=== PATIENT | female | born 1945 | race Caucasian/White ===

== ENCOUNTER 2018-02-01 07:46 | Emergency (ER) | payer MEDICARE, MEDICAID ==
[~2018-02-01] VITALS: Ht 154.9 cm; Wt 61.8 kg
[~2018-02-01 07:46] MED LIST: ACET-812 PO; ASPI81TA30 PO; CHOL10002 PO; FLAX1CAP6 PO; HYDR-3686 PO; LEVO88TA2 PO; LISI-604 PO; MULT-1085 PO; OMEP20CA10 PO; PHEN-786 PO; POLY17PO10 PO; PROC5TAB10 PO
[2018-02-01] MEDS ORDERED: LORazepam 1 MG tablet PO ONE (08:25)
[2018-02-01 08:47] LABS: BASOPHILS % (AUTO) 0.9 % (0-1); EOSINOPHILS # (AUTO) 0.1 X10'3 (0-0.9); EOSINOPHILS % (AUTO) 2.4 % (0-6); LYMPHOCYTES # (AUTO) 1.2 X10'3 (1.1-4.8); LYMPHOCYTES % (AUTO) 24.3 % (21-51); MEAN CORPUSCULAR HEMOGLOBIN 29.7 PG (27.0-31.0); MEAN CORPUSCULAR HGB CONC 33.3 % (33.0-36.5); MEAN CORPUSCULAR VOLUME 89.2 FL (78-98); MEAN PLATELET VOLUME 7.6 FL (7.4-10.4); MONOCYTES # (AUTO) 0.4 X10'3 (0-0.9); MONOCYTES % (AUTO) 7.9 % (2-12); NEUTROPHILS # (AUTO) 3.3 X10'3 (1.8-7.7); NEUTROPHILS % (AUTO) 64.5 % (42-75); PLATELET COUNT 249 X10'3 (140-440); RED BLOOD COUNT 4.37 X10'6 (4.20-5.60); RED CELL DISTRIBUTION WIDTH 13.8 % (11.5-14.5); WHITE BLOOD COUNT 5.1 X10'3 (4.5-11.0)
[2018-02-01 09:00] LABS: ALANINE AMINOTRANSFERASE 19 U/L (12-78); ALBUMIN 3.8 G/DL (3.4-5.0); ALKALINE PHOSPHATASE 73 IU/L (46-116); ANION GAP 7 (8-16); ASPARTATE AMINO TRANSFERASE 18 U/L (10-37); BILIRUBIN,TOTAL 0.4 MG/DL (0.1-1.0); BLOOD UREA NITROGEN 9 MG/DL (7-18); BUN/CREATININE RATIO 10.7 (6.6-38.0); CALCIUM 9.3 MG/DL (8.5-10.1); CHLORIDE 103 MMOL/L (99-107); CREATININE 0.84 MG/DL (0.40-0.90); GLUCOSE 103 MG/DL (70-104); POTASSIUM 4.2 MMOL/L (3.5-5.1); SODIUM 140 MMOL/L (135-145); TOTAL CARBON DIOXIDE 30.1 MMOL/L (24-32); TOTAL PROTEIN 7.7 G/DL (6.4-8.2); eGFR 66 ML/MIN
[2018-02-01 09:06] LABS: MAGNESIUM 1.9 MG/DL (1.5-2.4); TROPONIN I < 0.04 NG/ML (0.0-0.05)
[2018-02-01 10:36] VITALS: BP 134/64
== END 2018-02-01 10:42 | disposition home or self-care (01) ==
LOC: ER 07:47
DX: R20.2 Paresthesia of skin (principal); I10 Essential (primary) hypertension; F41.9 Anxiety disorder, unspecified; E03.9 Hypothyroidism, unspecified; Z90.49 Acquired absence of other specified parts of digestive tract; Z90.710 Acquired absence of both cervix and uterus; Z98.890 Other specified postprocedural states; Z60.2 Problems related to living alone; Z88.5 Allergy status to narcotic agent; Z88.8 Allergy status to other drugs, medicaments and biological substances; Z79.82 Long term (current) use of aspirin; Z79.899 Other long term (current) drug therapy
CPT/HCPCS: 36415; 71045; 80053; 83735; 84484; 85025; 93005; 99284

== ENCOUNTER 2018-03-30 12:20 | Emergency (ER) | payer MEDICARE, MEDICAID ==
[~2018-03-30] VITALS: Ht 157.5 cm; Wt 61.0 kg
[2018-03-30] MEDS ORDERED: LORazepam 1 MG tablet PO ONE (12:50)
[2018-03-30] MEDS ORDERED: LORazepam 0.5 MG tablet PO ONE (12:55)
[2018-03-30 13:02] LABS: BASOPHILS % (AUTO) 0.4 % (0-1); EOSINOPHILS # (AUTO) 0.1 X10'3 (0-0.9); EOSINOPHILS % (AUTO) 1.6 % (0-6); HEMATOCRIT 38.8 % (35.0-45.0); HEMOGLOBIN 13.1 g/dl (12.0-16.0); LYMPHOCYTES # (AUTO) 1.7 X10'3 (1.1-4.8); LYMPHOCYTES % (AUTO) 25.7 % (21-51); MEAN CORPUSCULAR HEMOGLOBIN 30.6 PG (27.0-31.0); MEAN CORPUSCULAR HGB CONC 33.7 % (33.0-36.5); MEAN CORPUSCULAR VOLUME 90.9 FL (78-98); MEAN PLATELET VOLUME 6.9 FL (7.4-10.4); MONOCYTES # (AUTO) 0.5 X10'3 (0-0.9); MONOCYTES % (AUTO) 8.4 % (2-12); NEUTROPHILS # (AUTO) 4.1 X10'3 (1.8-7.7); NEUTROPHILS % (AUTO) 63.9 % (42-75); PLATELET COUNT 274 X10'3 (140-440); RED BLOOD COUNT 4.27 X10'6 (4.20-5.60); RED CELL DISTRIBUTION WIDTH 13.7 % (11.5-14.5); WHITE BLOOD COUNT 6.4 X10'3 (4.5-11.0)
[2018-03-30 13:18] LABS: ALANINE AMINOTRANSFERASE 23 U/L (12-78); ALBUMIN 4.1 G/DL (3.4-5.0); ALKALINE PHOSPHATASE 67 IU/L (46-116); ANION GAP 8 (8-16); ASPARTATE AMINO TRANSFERASE 18 U/L (10-37); BILIRUBIN,TOTAL 0.6 MG/DL (0.1-1.0); BLOOD UREA NITROGEN 10 MG/DL (7-18); BUN/CREATININE RATIO 11.4 (6.6-38.0); CALCIUM 9.5 MG/DL (8.5-10.1); CHLORIDE 100 MMOL/L (99-107); CREATININE 0.88 MG/DL (0.40-0.90); GLUCOSE 102 MG/DL (70-104); POTASSIUM 3.9 MMOL/L (3.5-5.1); SODIUM 138 MMOL/L (135-145); TOTAL CARBON DIOXIDE 30.3 MMOL/L (24-32); TOTAL PROTEIN 8.1 G/DL (6.4-8.2); eGFR 63 ML/MIN
[2018-03-30 13:20] LABS: PARTIAL THROMBOPLASTIN TIME 29 SECONDS (22-32); PROTHROMBIN TIME 10.4 SECONDS (9.0-12.0)
[2018-03-30 14:00] VITALS: BP 161/86
== END 2018-03-30 14:01 | disposition home or self-care (01) ==
LOC: ER 12:21
DX: I10 Essential (primary) hypertension (principal); F41.9 Anxiety disorder, unspecified; E03.9 Hypothyroidism, unspecified; Z88.6 Allergy status to analgesic agent; Z88.8 Allergy status to other drugs, medicaments and biological substances; Z79.82 Long term (current) use of aspirin; Z79.899 Other long term (current) drug therapy; Z90.49 Acquired absence of other specified parts of digestive tract; Z90.710 Acquired absence of both cervix and uterus
CPT/HCPCS: 36415; 71045; 80053; 84484; 85025; 85610; 85730; 93005; 99284

== ENCOUNTER 2018-04-18 13:21 | Emergency (ER) | payer MEDICARE, MEDICAID ==
[~2018-04-18] VITALS: Ht 157.5 cm; Wt 67.0 kg
[2018-04-18 14:43] VITALS: BP 121/70
[2018-04-18] MEDS ORDERED: aspirin 81mg tab.chew PO ONE (14:45)
--- NOTE | 2018-04-18 15:29 | NUR ---
EMS GAVE 324 OF [address] EN ROUTE
[2018-04-18 15:39] LABS: BASOPHILS % (AUTO) 0.6 % (0-1); EOSINOPHILS % (AUTO) 0.1 % (0-6); HEMATOCRIT 37.7 % (35.0-45.0); HEMOGLOBIN 12.8 g/dl (12.0-16.0); LYMPHOCYTES # (AUTO) 1.2 X10'3 (1.1-4.8); LYMPHOCYTES % (AUTO) 15.2 % (21-51); MEAN CORPUSCULAR HEMOGLOBIN 30.6 PG (27.0-31.0); MEAN CORPUSCULAR VOLUME 90.2 FL (78-98); MEAN PLATELET VOLUME 7.6 FL (7.4-10.4); MONOCYTES # (AUTO) 0.5 X10'3 (0-0.9); MONOCYTES % (AUTO) 7.1 % (2-12); NEUTROPHILS # (AUTO) 5.9 X10'3 (1.8-7.7); PLATELET COUNT 265 X10'3 (140-440); RED BLOOD COUNT 4.18 X10'6 (4.20-5.60); RED CELL DISTRIBUTION WIDTH 13.9 % (11.5-14.5); WHITE BLOOD COUNT 7.7 X10'3 (4.5-11.0)
[2018-04-18] MEDS ORDERED: clonazePAM 0.5mg tablet PO SCH (15:50)
[2018-04-18 15:57] LABS: ALANINE AMINOTRANSFERASE 16 U/L (12-78); ALBUMIN 3.8 G/DL (3.4-5.0); ALBUMIN/GLOBULIN RATIO 1.1 (1.1-1.5); ALKALINE PHOSPHATASE 60 IU/L (46-116); ANION GAP 8 (8-16); ASPARTATE AMINO TRANSFERASE 18 U/L (10-37); BILIRUBIN,TOTAL 0.5 MG/DL (0.1-1.0); BLOOD UREA NITROGEN 11 MG/DL (7-18); BUN/CREATININE RATIO 13.1 (6.6-38.0); CALCIUM 9.3 MG/DL (8.5-10.1); CHLORIDE 102 MMOL/L (99-107); CREATININE 0.84 MG/DL (0.40-0.90); GLUCOSE 99 MG/DL (70-104); POTASSIUM 4.1 MMOL/L (3.5-5.1); SODIUM 136 MMOL/L (135-145); TOTAL CARBON DIOXIDE 26.1 MMOL/L (24-32); TOTAL PROTEIN 7.3 G/DL (6.4-8.2); eGFR 66 ML/MIN
[2018-04-18] MEDS ORDERED: AMOX-101 PO (16:27)
== END 2018-04-18 18:51 | disposition home or self-care (01) ==
LOC: ER 13:21
DX: R07.89 Other chest pain (principal); F41.9 Anxiety disorder, unspecified; R00.2 Palpitations; I10 Essential (primary) hypertension; E03.9 Hypothyroidism, unspecified; Z90.49 Acquired absence of other specified parts of digestive tract; Z90.710 Acquired absence of both cervix and uterus; Z88.8 Allergy status to other drugs, medicaments and biological substances; Z79.82 Long term (current) use of aspirin; Z79.899 Other long term (current) drug therapy; Z88.5 Allergy status to narcotic agent; Z85.3 Personal history of malignant neoplasm of breast
CPT/HCPCS: 36415; 71045; 80053; 83735; 83880; 84484; 85025; 93005; 99284

== ENCOUNTER → 2018-04-24 | Emergency (ER) | payer MEDICARE, MEDICAID ==
[~2018-04-24] VITALS: Ht 157.5 cm; Wt 52.0 kg
[~2018-04-24] MED LIST changes: +ACYC-202 PO; +AMOX-101 PO
[2018-04-24 20:30] VITALS: BP 201/86
== END | disposition home or self-care (01) ==
LOC: ER 20:29
DX: B02.9 Zoster without complications (principal); I10 Essential (primary) hypertension; E03.9 Hypothyroidism, unspecified; F41.9 Anxiety disorder, unspecified; Z90.710 Acquired absence of both cervix and uterus; Z90.49 Acquired absence of other specified parts of digestive tract; Z88.5 Allergy status to narcotic agent; Z79.82 Long term (current) use of aspirin
CPT/HCPCS: 99283

== ENCOUNTER 2018-10-19 09:37 | Emergency (ER) | payer MEDICARE, MEDICAID ==
[~2018-10-19] VITALS: Ht 165.1 cm; Wt 63.5 kg
[~2018-10-19 09:37] MED LIST changes: -ACYC-202 PO; -AMOX-101 PO; -OMEP20CA10 PO; +OMEP20CA11 PO
[2018-10-19 10:06] LABS: CLARITY,URINE CLEAR (Clear); COLOR,URINE YELLOW (Yellow); GLUCOSE, URINE NEGATIVE (Neg); KETONES,URINE NEGATIVE (Neg); LEUKOCYTE ESTERASE ,URINE SMALL (Neg); NITRITES, URINE NEGATIVE (Neg); OCCULT BLOOD,URINE SMALL (Neg); PH,URINE 7.5 (4.8-8.0); PROTEIN,URINE NEGATIVE (Neg); UROBILINOGEN,URINE 0.2 E.U/dL (0.2-1.0)
[2018-10-19 10:08] LABS: UA COLLECTION TYPE CLN CATCH MIDSTREAM
[2018-10-19 10:12] LABS: BACTERIA,URINE FEW /HPF (Neg); MUCUS STRANDS NONE SEEN /LPF (Neg); RBC,URINE 0-2 /HPF (0-2); SQUAMOUS EPITHELIAL CELL,UR FEW /LPF (FEW); WBC,URINE 0-4 /HPF (0-4)
[2018-10-19 10:25] LABS: BASOPHILS % (AUTO) 0.4 % (0-1); EOSINOPHILS % (AUTO) 0.7 % (0-6); HEMATOCRIT 38.1 % (35.0-45.0); HEMOGLOBIN 12.7 g/dl (12.0-16.0); LYMPHOCYTES # (AUTO) 1.2 X10'3 (1.1-4.8); LYMPHOCYTES % (AUTO) 17.3 % (21-51); MEAN CORPUSCULAR HEMOGLOBIN 30.1 PG (27.0-31.0); MEAN CORPUSCULAR HGB CONC 33.5 g/dL (33.0-36.5); MEAN CORPUSCULAR VOLUME 89.9 FL (78-98); MEAN PLATELET VOLUME 8.1 FL (7.4-10.4); MONOCYTES # (AUTO) 0.5 X10'3 (0-0.9); MONOCYTES % (AUTO) 7.4 % (2-12); NEUTROPHILS # (AUTO) 5.1 X10'3 (1.8-7.7); NEUTROPHILS % (AUTO) 74.2 % (42-75); PLATELET COUNT 221 X10'3 (140-440); RED BLOOD COUNT 4.23 X10'6 (4.20-5.60); RED CELL DISTRIBUTION WIDTH 13.7 % (11.5-14.5); WHITE BLOOD COUNT 6.9 X10'3 (4.5-11.0)
[2018-10-19 10:43] LABS: ALANINE AMINOTRANSFERASE 28 U/L (12-78); ALBUMIN 3.8 G/DL (3.4-5.0); ALKALINE PHOSPHATASE 66 IU/L (46-116); ANION GAP 7 (8-16); ASPARTATE AMINO TRANSFERASE 15 U/L (10-37); BILIRUBIN,TOTAL 0.4 MG/DL (0.1-1.0); BLOOD UREA NITROGEN 8 MG/DL (7-18); BUN/CREATININE RATIO 9.3 (6.6-38.0); CALCIUM 9.4 MG/DL (8.5-10.1); CHLORIDE 104 MMOL/L (99-107); CREATININE 0.86 MG/DL (0.40-0.90); GLUCOSE 105 MG/DL (70-104); POTASSIUM 3.8 MMOL/L (3.5-5.1); SODIUM 139 MMOL/L (135-145); TOTAL CARBON DIOXIDE 28.1 MMOL/L (24-32); TOTAL PROTEIN 7.8 G/DL (6.4-8.2); eGFR 65 ML/MIN
[2018-10-19 13:16] VITALS: BP 157/68
== END 2018-10-19 13:14 | disposition home or self-care (01) ==
LOC: ER 09:38
DX: K52.1 Toxic gastroenteritis and colitis (principal); T47.4X5A Adverse effect of other laxatives, initial encounter; I10 Essential (primary) hypertension; E03.9 Hypothyroidism, unspecified; F41.9 Anxiety disorder, unspecified; Z90.49 Acquired absence of other specified parts of digestive tract; Z90.710 Acquired absence of both cervix and uterus; Z98.890 Other specified postprocedural states; Z88.5 Allergy status to narcotic agent; Z88.8 Allergy status to other drugs, medicaments and biological substances; Z79.82 Long term (current) use of aspirin; Z79.899 Other long term (current) drug therapy; Y92.89 Other specified places as the place of occurrence of the external cause
CPT/HCPCS: 36415; 80053; 81001; 85025; 85610; 87088; 99283

== ENCOUNTER 2018-12-16 07:59 | Emergency (ER) | payer MEDICARE, MEDICAID ==
[~2018-12-16] VITALS: Ht 157.5 cm; Wt 63.6 kg
[2018-12-16 08:33] LABS: BASOPHILS % (AUTO) 0.5 % (0-1); EOSINOPHILS # (AUTO) 0.1 X10'3 (0-0.9); HEMATOCRIT 39.8 % (35.0-45.0); HEMOGLOBIN 13.6 g/dl (12.0-16.0); LYMPHOCYTES # (AUTO) 1.2 X10'3 (1.1-4.8); LYMPHOCYTES % (AUTO) 18.3 % (21-51); MEAN CORPUSCULAR HEMOGLOBIN 30.3 PG (27.0-31.0); MEAN CORPUSCULAR HGB CONC 34.1 g/dL (33.0-36.5); MEAN CORPUSCULAR VOLUME 88.9 FL (78-98); MEAN PLATELET VOLUME 7.2 FL (7.4-10.4); MONOCYTES # (AUTO) 0.4 X10'3 (0-0.9); MONOCYTES % (AUTO) 6.3 % (2-12); NEUTROPHILS # (AUTO) 4.9 X10'3 (1.8-7.7); NEUTROPHILS % (AUTO) 73.9 % (42-75); PLATELET COUNT 221 X10'3 (140-440); RED BLOOD COUNT 4.48 X10'6 (4.20-5.60); RED CELL DISTRIBUTION WIDTH 13.9 % (11.5-14.5); WHITE BLOOD COUNT 6.6 X10'3 (4.5-11.0)
[2018-12-16 08:42] LABS: PARTIAL THROMBOPLASTIN TIME 28 SECONDS (22-32)
[2018-12-16 08:51] LABS: ALANINE AMINOTRANSFERASE 24 U/L (12-78); ALBUMIN 3.9 G/DL (3.4-5.0); ALKALINE PHOSPHATASE 66 IU/L (46-116); ANION GAP 5 (8-16); ASPARTATE AMINO TRANSFERASE 18 U/L (10-37); BILIRUBIN,TOTAL 0.6 MG/DL (0.1-1.0); BLOOD UREA NITROGEN 8 MG/DL (7-18); BUN/CREATININE RATIO 8.5 (6.6-38.0); CALCIUM 9.8 MG/DL (8.5-10.1); CHLORIDE 104 MMOL/L (99-107); CREATININE 0.94 MG/DL (0.40-0.90); GLUCOSE 106 MG/DL (70-104); POTASSIUM 4.2 MMOL/L (3.5-5.1); SODIUM 140 MMOL/L (135-145); TOTAL CARBON DIOXIDE 31.3 MMOL/L (24-32); eGFR 58 ML/MIN
--- NOTE | 2018-12-16 09:10 | NUR ---
PT AMBULATORY WITH STEADY GAIT TO BATHROOM, PT DENIES ANY LIGHT HEADED FEELING UPON GETTING UP, FAMILY TO BATHROOM WITH PT STAND BY ASSIST.
[2018-12-16 09:23] LABS: CLARITY,URINE CLEAR (Clear); COLOR,URINE STRAW (Yellow); GLUCOSE, URINE NEGATIVE (Neg); KETONES,URINE NEGATIVE (Neg); LEUKOCYTE ESTERASE ,URINE TRACE (Neg); NITRITES, URINE NEGATIVE (Neg); OCCULT BLOOD,URINE TRACE-INTACT (Neg); PH,URINE 7.5 (4.8-8.0); PROTEIN,URINE NEGATIVE (Neg); UROBILINOGEN,URINE 0.2 E.U/dL (0.2-1.0)
[2018-12-16 09:24] LABS: UA COLLECTION TYPE CLN CATCH MIDSTREAM
[2018-12-16] MEDS ORDERED: amLODIPine 5mg tablet PO ONE (09:25)
[2018-12-16 09:28] LABS: SQUAMOUS EPITHELIAL CELL,UR FEW /LPF (FEW)
[2018-12-16 09:29] LABS: BACTERIA,URINE FEW /HPF (Neg); WBC,URINE 0-4 /HPF (0-4)
[2018-12-16 10:06] VITALS: BP 179/83
== END 2018-12-16 10:38 | disposition home or self-care (01) ==
LOC: ER 07:59
DX: I10 Essential (primary) hypertension (principal); R53.1 Weakness; R42 Dizziness and giddiness; R11.0 Nausea; R79.1 Abnormal coagulation profile; E03.9 Hypothyroidism, unspecified; F41.9 Anxiety disorder, unspecified; Z88.8 Allergy status to other drugs, medicaments and biological substances; Z88.6 Allergy status to analgesic agent; Z79.899 Other long term (current) drug therapy; Z79.82 Long term (current) use of aspirin; Z90.49 Acquired absence of other specified parts of digestive tract; Z90.710 Acquired absence of both cervix and uterus; Z60.2 Problems related to living alone; Z87.440 Personal history of urinary (tract) infections
CPT/HCPCS: 36415; 71045; 80053; 81001; 84145; 84484; 85025; 85610; 85730; 87088; 93005; 99284

== ENCOUNTER 2019-01-22 05:57 | Emergency (ER) | payer MEDICARE, MEDICAID ==
[~2019-01-22] VITALS: Ht 157.5 cm; Wt 63.0 kg
[2019-01-22 06:33] LABS: BASOPHILS % (AUTO) 0.6 % (0-1); EOSINOPHILS # (AUTO) 0.1 X10'3 (0-0.9); EOSINOPHILS % (AUTO) 2.8 % (0-6); HEMATOCRIT 36.6 % (35.0-45.0); HEMOGLOBIN 12.4 g/dl (12.0-16.0); LYMPHOCYTES % (AUTO) 39.3 % (21-51); MEAN CORPUSCULAR HEMOGLOBIN 30.7 PG (27.0-31.0); MEAN CORPUSCULAR HGB CONC 33.9 g/dL (33.0-36.5); MEAN CORPUSCULAR VOLUME 90.6 FL (78-98); MEAN PLATELET VOLUME 7.8 FL (7.4-10.4); MONOCYTES # (AUTO) 0.5 X10'3 (0-0.9); MONOCYTES % (AUTO) 9.4 % (2-12); NEUTROPHILS # (AUTO) 2.5 X10'3 (1.8-7.7); NEUTROPHILS % (AUTO) 47.9 % (42-75); PLATELET COUNT 227 X10'3 (140-440); RED BLOOD COUNT 4.04 X10'6 (4.20-5.60); RED CELL DISTRIBUTION WIDTH 14.2 % (11.5-14.5); WHITE BLOOD COUNT 5.2 X10'3 (4.5-11.0)
[2019-01-22 06:44] LABS: ALANINE AMINOTRANSFERASE 12 U/L (12-78); ALBUMIN 3.7 G/DL (3.4-5.0); ALKALINE PHOSPHATASE 60 IU/L (46-116); ANION GAP 5 (8-16); ASPARTATE AMINO TRANSFERASE 22 U/L (10-37); BILIRUBIN,TOTAL 0.5 MG/DL (0.1-1.0); BLOOD UREA NITROGEN 9 MG/DL (7-18); BUN/CREATININE RATIO 10.3 (6.6-38.0); CALCIUM 9.1 MG/DL (8.5-10.1); CHLORIDE 103 MMOL/L (99-107); CREATININE 0.87 MG/DL (0.40-0.90); GLUCOSE 101 MG/DL (70-104); POTASSIUM 3.7 MMOL/L (3.5-5.1); SODIUM 138 MMOL/L (135-145); TOTAL CARBON DIOXIDE 29.7 MMOL/L (24-32); TOTAL PROTEIN 7.3 G/DL (6.4-8.2); eGFR 64 ML/MIN
[2019-01-22] MEDS ORDERED: amLODIPine 5mg tablet PO ONE (06:45)
[2019-01-22] MEDS ORDERED: AMLO-314 PO (07:50)
[2019-01-22 08:15] VITALS: BP 154/74
[2019-01-22] MEDS ORDERED: LISI40TA4 PO (08:24)
== END 2019-01-22 08:25 | disposition home or self-care (01) ==
LOC: ER 05:59
DX: I10 Essential (primary) hypertension (principal); G62.9 Polyneuropathy, unspecified; E03.9 Hypothyroidism, unspecified; F41.9 Anxiety disorder, unspecified; Z90.49 Acquired absence of other specified parts of digestive tract; Z90.710 Acquired absence of both cervix and uterus; Z98.890 Other specified postprocedural states; Z60.2 Problems related to living alone; Z88.5 Allergy status to narcotic agent; Z88.8 Allergy status to other drugs, medicaments and biological substances; Z79.899 Other long term (current) drug therapy
CPT/HCPCS: 36415; 71045; 80053; 83735; 83880; 84484; 85025; 93005; 99284

== ENCOUNTER 2019-10-03 23:18 | Emergency (ER) | payer MEDICARE, MEDICAID ==
[~2019-10-03] VITALS: Ht 157.5 cm; Wt 63.6 kg
[~2019-10-03 23:18] MED LIST changes: +AMLO-314 PO; -LISI-604 PO; +LISI40TA4 PO; -OMEP20CA11 PO; +OMEP20CA15 PO
[2019-10-03 23:48] LABS: BASOPHILS % (AUTO) 0.9 % (0-1); EOSINOPHILS # (AUTO) 0.2 X10'3 (0-0.9); EOSINOPHILS % (AUTO) 2.8 % (0-6); HEMATOCRIT 37.8 % (35.0-45.0); HEMOGLOBIN 12.8 g/dl (12.0-16.0); LYMPHOCYTES # (AUTO) 2.2 X10'3 (1.1-4.8); LYMPHOCYTES % (AUTO) 41.6 % (21-51); MEAN CORPUSCULAR HEMOGLOBIN 30.6 PG (27.0-31.0); MEAN CORPUSCULAR HGB CONC 33.9 g/dL (33.0-36.5); MEAN CORPUSCULAR VOLUME 90.3 FL (78-98); MEAN PLATELET VOLUME 7.9 FL (7.4-10.4); MONOCYTES # (AUTO) 0.7 X10'3 (0-0.9); MONOCYTES % (AUTO) 12.3 % (2-12); NEUTROPHILS # (AUTO) 2.3 X10'3 (1.8-7.7); NEUTROPHILS % (AUTO) 42.4 % (42-75); PLATELET COUNT 203 X10'3 (140-440); RED BLOOD COUNT 4.19 X10'6 (4.20-5.60); WHITE BLOOD COUNT 5.3 X10'3 (4.5-11.0)
[2019-10-03 23:54] LABS: ALANINE AMINOTRANSFERASE 23 U/L (12-78); ALKALINE PHOSPHATASE 72 IU/L (46-116); ANION GAP 6 (8-16); ASPARTATE AMINO TRANSFERASE 19 U/L (10-37); BILIRUBIN,TOTAL 0.3 MG/DL (0.1-1.0); BLOOD UREA NITROGEN 14 MG/DL (7-18); BUN/CREATININE RATIO 13.1 (6.6-38.0); CALCIUM 9.4 MG/DL (8.5-10.1); CHLORIDE 105 MMOL/L (99-107); CREATININE 1.07 MG/DL (0.40-0.90); GLUCOSE 124 MG/DL (70-104); POTASSIUM 3.4 MMOL/L (3.5-5.1); SODIUM 140 MMOL/L (135-145); TOTAL CARBON DIOXIDE 28.8 MMOL/L (24-32); TOTAL PROTEIN 7.9 G/DL (6.4-8.2); eGFR 50 ML/MIN
[2019-10-04 00:01] LABS: TROPONIN I < 0.04 NG/ML (0.0-0.05)
--- NOTE | 2019-10-04 00:24 | NUR ---
RELIEVING RN FOR BREAK, PT IS RESTING QUIETLY ON GURNEY, GCS 15, ALERT, RESP EVEN AND UNLABORED, WAITING TO BE EVALUATED BY PROVIDER
[2019-10-04 01:17] VITALS: BP 148/72
== END 2019-10-04 01:25 | disposition home or self-care (01) ==
LOC: ER 23:19
DX: G62.9 Polyneuropathy, unspecified (principal); R60.0 Localized edema; I10 Essential (primary) hypertension; M79.604 Pain in right leg; M79.605 Pain in left leg; E03.9 Hypothyroidism, unspecified; F41.9 Anxiety disorder, unspecified; Z90.710 Acquired absence of both cervix and uterus; Z90.49 Acquired absence of other specified parts of digestive tract; Z98.890 Other specified postprocedural states; Z60.2 Problems related to living alone; Z88.5 Allergy status to narcotic agent; Z79.899 Other long term (current) drug therapy
CPT/HCPCS: 36415; 71045; 80053; 83880; 84484; 85025; 93005; 99285

== ENCOUNTER 2020-04-27 23:46 | Emergency (ER) | payer MEDICARE, MEDICAID ==
[~2020-04-27] VITALS: Ht 157.5 cm; Wt 65.5 kg
[~2020-04-27 23:46] MED LIST changes: +LISI40TA13 PO; -LISI40TA4 PO
[2020-04-28 00:43] VITALS: BP 173/74
== END 2020-04-28 00:53 | disposition home or self-care (01) ==
LOC: ER 23:46
DX: S60.111A Contusion of right thumb with damage to nail, initial encounter (principal); M79.644 Pain in right finger(s); I10 Essential (primary) hypertension; E03.9 Hypothyroidism, unspecified; F41.9 Anxiety disorder, unspecified; Z87.440 Personal history of urinary (tract) infections; Z90.49 Acquired absence of other specified parts of digestive tract; Z90.710 Acquired absence of both cervix and uterus; Z98.890 Other specified postprocedural states; Z60.2 Problems related to living alone; Z88.8 Allergy status to other drugs, medicaments and biological substances; Z88.5 Allergy status to narcotic agent; Z79.899 Other long term (current) drug therapy; X58.XXXA Exposure to other specified factors, initial encounter; Y93.89 Activity, other specified; Y92.89 Other specified places as the place of occurrence of the external cause; Y99.8 Other external cause status
CPT/HCPCS: 11740; 73140; 99284

== ENCOUNTER 2020-05-18 01:53 | Emergency (ER) | payer MEDICARE, MEDICAID ==
[~2020-05-18] VITALS: Ht 157.5 cm; Wt 65.5 kg
[2020-05-18] MEDS ORDERED: normal saline 1000ML IV soln IVB ONE (02:20)
[2020-05-18] MEDS: ondansetron/PF 4mg/2ml inj IV ONE ×2 (02:29→02:33)
[2020-05-18 02:45] LABS: CLARITY,URINE CLEAR (Clear); COLOR,URINE YELLOW (Yellow); GLUCOSE, URINE NEGATIVE (Neg); KETONES,URINE NEGATIVE (Neg); LEUKOCYTE ESTERASE ,URINE NEGATIVE (Neg); NITRITES, URINE NEGATIVE (Neg); OCCULT BLOOD,URINE TRACE-INTACT (Neg); PH,URINE 7.5 (4.8-8.0); PROTEIN,URINE NEGATIVE (Neg); UROBILINOGEN,URINE 0.2 E.U/dL (0.2-1.0)
[2020-05-18 02:46] LABS: BASOPHILS % (AUTO) 0.8 % (0-1); EOSINOPHILS # (AUTO) 0.2 X10'3 (0-0.9); EOSINOPHILS % (AUTO) 3.4 % (0-6); HEMATOCRIT 36.9 % (35.0-45.0); HEMOGLOBIN 12.7 g/dl (12.0-16.0); LYMPHOCYTES # (AUTO) 1.6 X10'3 (1.1-4.8); LYMPHOCYTES % (AUTO) 31.8 % (21-51); MEAN CORPUSCULAR HEMOGLOBIN 30.8 PG (27.0-31.0); MEAN CORPUSCULAR HGB CONC 34.3 g/dL (33.0-36.5); MEAN CORPUSCULAR VOLUME 89.9 FL (78-98); MEAN PLATELET VOLUME 7.5 FL (7.4-10.4); MONOCYTES # (AUTO) 0.7 X10'3 (0-0.9); MONOCYTES % (AUTO) 13.4 % (2-12); NEUTROPHILS # (AUTO) 2.5 X10'3 (1.8-7.7); NEUTROPHILS % (AUTO) 50.6 % (42-75); PLATELET COUNT 248 X10'3 (140-440); RED CELL DISTRIBUTION WIDTH 13.3 % (11.5-14.5)
[2020-05-18 02:50] LABS: UA COLLECTION TYPE CLN CATCH MIDSTREAM
[2020-05-18 02:51] LABS: BACTERIA,URINE NONE SEEN /HPF (Neg); RBC,URINE 0-2 /HPF (0-2); SQUAMOUS EPITHELIAL CELL,UR FEW /LPF (FEW); WBC,URINE NONE SEEN /HPF (0-4)
[2020-05-18] MEDS ORDERED: clonazePAM 0.5mg tablet PO ONE (02:55)
[2020-05-18] MEDS ORDERED: acetaminophen 325mg tablet PO ONE (02:55)
--- NOTE | 2020-05-18 03:01 | NUR ---
PT REQUESTS CLONAZAPAM .5 MG TABE (HER HOME PRN DOSE) AND TYLENOL. DR. CHAVEZ ORDERING THESE MEDS PO. AWAITING CT RESULTS. BP 159/70.
[2020-05-18 03:12] LABS: ALANINE AMINOTRANSFERASE 23 U/L (12-78); ALBUMIN 3.7 G/DL (3.4-5.0); ALBUMIN/GLOBULIN RATIO 0.9 (1.1-1.5); ALKALINE PHOSPHATASE 65 IU/L (46-116); ANION GAP 7 (8-16); ASPARTATE AMINO TRANSFERASE 18 U/L (10-37); BILIRUBIN,TOTAL 0.4 MG/DL (0.1-1.0); BLOOD UREA NITROGEN 13 MG/DL (7-18); BUN/CREATININE RATIO 13.1 (6.6-38.0); CALCIUM 9.4 MG/DL (8.5-10.1); CHLORIDE 98 MMOL/L (99-107); CREATININE 0.99 MG/DL (0.40-0.90); GLUCOSE 103 MG/DL (70-104); LIPASE 148 U/L (73-393); POTASSIUM 3.5 MMOL/L (3.5-5.1); SODIUM 135 MMOL/L (135-145); TOTAL CARBON DIOXIDE 30.3 MMOL/L (24-32); TOTAL PROTEIN 7.7 G/DL (6.4-8.2); eGFR 55 ML/MIN
[2020-05-18 04:24] VITALS: BP 136/59
--- NOTE | 2020-05-18 04:55 | NUR ---
PT CALLED HER SISTER FOR TRANSPORT HOME.
== END 2020-05-18 04:55 | disposition home or self-care (01) ==
LOC: ER 01:55
DX: R10.31 Right lower quadrant pain (principal); N18.9 Chronic kidney disease, unspecified; I12.0 Hypertensive chronic kidney disease with stage 5 chronic kidney disease or end stage renal disease; K59.00 Constipation, unspecified; E07.9 Disorder of thyroid, unspecified; Z87.440 Personal history of urinary (tract) infections; Z79.899 Other long term (current) drug therapy; Z79.82 Long term (current) use of aspirin; Z88.8 Allergy status to other drugs, medicaments and biological substances
CPT/HCPCS: 36415; 74176; 80053; 81001; 83690; 85025; 99285; J7030; 99284; J2405

== ENCOUNTER 2020-06-02 04:06 | Emergency (ER) | payer MEDICARE, MEDICAID ==
[~2020-06-02] VITALS: Ht 157.5 cm; Wt 63.6 kg
[2020-06-02 04:17] VITALS: BP 178/84
[2020-06-02] MEDS ORDERED: acetaminophen w/codeine (30MG) #3 tablet PO ONE (04:35)
[2020-06-02] MEDS ORDERED: ketorolac trometh. 30mg/ml inj. IV ONE (04:35)
[2020-06-02] MEDS ORDERED: ondansetron 4mg rapidly disintigrating tab PO ONE (04:35)
[2020-06-02] MEDS ORDERED: ONDA4TAB12 PO (05:34)
[2020-06-02] MEDS ORDERED: ACET1TAB25 PO (05:34)
== END 2020-06-02 07:19 | disposition home or self-care (01) ==
LOC: ER 04:07
DX: B02.9 Zoster without complications (principal); M79.605 Pain in left leg; I10 Essential (primary) hypertension; F41.9 Anxiety disorder, unspecified; E05.90 Thyrotoxicosis, unspecified without thyrotoxic crisis or storm; Z90.49 Acquired absence of other specified parts of digestive tract; Z60.2 Problems related to living alone; Z90.710 Acquired absence of both cervix and uterus; Z88.5 Allergy status to narcotic agent; Z88.8 Allergy status to other drugs, medicaments and biological substances; Z79.899 Other long term (current) drug therapy
CPT/HCPCS: 96374; 99283; J1885

== ENCOUNTER 2020-06-04 12:00 | Emergency (ER) | payer MEDICARE, MEDICAID ==
[~2020-06-04] VITALS: Ht 157.5 cm; Wt 63.6 kg
[~2020-06-04 12:00] MED LIST changes: +ACET1TAB25 PO; +ONDA4TAB12 PO
[2020-06-04 13:16] LABS: BASOPHILS % (AUTO) 0.6 % (0-1); EOSINOPHILS % (AUTO) 0.4 % (0-6); HEMATOCRIT 35.4 % (35.0-45.0); HEMOGLOBIN 12.1 g/dl (12.0-16.0); LYMPHOCYTES # (AUTO) 1.2 X10'3 (1.1-4.8); LYMPHOCYTES % (AUTO) 17.4 % (21-51); MEAN CORPUSCULAR HEMOGLOBIN 30.6 PG (27.0-31.0); MEAN CORPUSCULAR HGB CONC 34.2 g/dL (33.0-36.5); MEAN CORPUSCULAR VOLUME 89.6 FL (78-98); MEAN PLATELET VOLUME 7.2 FL (7.4-10.4); MONOCYTES # (AUTO) 0.7 X10'3 (0-0.9); MONOCYTES % (AUTO) 10.4 % (2-12); NEUTROPHILS # (AUTO) 5.1 X10'3 (1.8-7.7); NEUTROPHILS % (AUTO) 71.2 % (42-75); PLATELET COUNT 292 X10'3 (140-440); RED BLOOD COUNT 3.96 X10'6 (4.20-5.60); RED CELL DISTRIBUTION WIDTH 13.7 % (11.5-14.5); WHITE BLOOD COUNT 7.1 X10'3 (4.5-11.0)
[2020-06-04 13:32] LABS: ALANINE AMINOTRANSFERASE 27 U/L (12-78); ALKALINE PHOSPHATASE 60 IU/L (46-116); ANION GAP 6 (8-16); ASPARTATE AMINO TRANSFERASE 23 U/L (10-37); BILIRUBIN,TOTAL 0.8 MG/DL (0.1-1.0); BLOOD UREA NITROGEN 16 MG/DL (7-18); BUN/CREATININE RATIO 16.8 (6.6-38.0); CALCIUM 9.5 MG/DL (8.5-10.1); CHLORIDE 94 MMOL/L (99-107); CREATININE 0.95 MG/DL (0.40-0.90); GLUCOSE 108 MG/DL (70-104); POTASSIUM 4.3 MMOL/L (3.5-5.1); SODIUM 129 MMOL/L (135-145); TOTAL CARBON DIOXIDE 28.9 MMOL/L (24-32); TOTAL PROTEIN 7.9 G/DL (6.4-8.2); eGFR 57 ML/MIN
[2020-06-04] MEDS ORDERED: normal saline 1000ML IV soln IVB ONE (13:40)
[2020-06-04 16:14] VITALS: BP 169/84
== END 2020-06-04 16:18 | disposition home or self-care (01) ==
LOC: ER 12:01
DX: B01.9 Varicella without complication (principal); E87.1 Hypo-osmolality and hyponatremia; I10 Essential (primary) hypertension; E05.90 Thyrotoxicosis, unspecified without thyrotoxic crisis or storm; F41.9 Anxiety disorder, unspecified; Z90.49 Acquired absence of other specified parts of digestive tract; Z90.710 Acquired absence of both cervix and uterus; Z98.890 Other specified postprocedural states; Z60.2 Problems related to living alone; Z88.5 Allergy status to narcotic agent; Z88.8 Allergy status to other drugs, medicaments and biological substances; Z79.899 Other long term (current) drug therapy
CPT/HCPCS: 36415; 71045; 80053; 84484; 85025; 85610; 93005; 99285; J7030

== ENCOUNTER 2020-06-09 15:46 | Emergency (ER) | payer MEDICARE, MEDICAID ==
[~2020-06-09] VITALS: Ht 157.5 cm; Wt 63.6 kg
[2020-06-09 16:05] VITALS: BP 171/76
[2020-06-09 17:43] LABS: HEMOGLOBIN 12.3 g/dl (12.0-16.0); MEAN CORPUSCULAR HEMOGLOBIN 30.9 PG (27.0-31.0); MEAN PLATELET VOLUME 7.2 FL (7.4-10.4); PLATELET COUNT 295 X10'3 (140-440); WHITE BLOOD COUNT 7.4 X10'3 (4.5-11.0)
[2020-06-09 17:45] LABS: BASOPHILS % (AUTO) 0.6 % (0-1); EOSINOPHILS # (AUTO) 0.1 X10'3 (0-0.9); HEMATOCRIT 36.1 % (35.0-45.0); LYMPHOCYTES # (AUTO) 1.4 X10'3 (1.1-4.8); LYMPHOCYTES % (AUTO) 19.2 % (21-51); MEAN CORPUSCULAR HGB CONC 34.2 g/dL (33.0-36.5); MEAN CORPUSCULAR VOLUME 90.3 FL (78-98); MONOCYTES # (AUTO) 0.7 X10'3 (0-0.9); MONOCYTES % (AUTO) 9.8 % (2-12); NEUTROPHILS # (AUTO) 5.1 X10'3 (1.8-7.7); NEUTROPHILS % (AUTO) 69.4 % (42-75); RED CELL DISTRIBUTION WIDTH 13.9 % (11.5-14.5)
[2020-06-09 17:59] LABS: ALANINE AMINOTRANSFERASE 25 U/L (12-78); ALBUMIN 4.2 G/DL (3.4-5.0); ALBUMIN/GLOBULIN RATIO 1.1 (1.1-1.5); ALKALINE PHOSPHATASE 58 IU/L (46-116); ANION GAP 9 (8-16); ASPARTATE AMINO TRANSFERASE 24 U/L (10-37); BILIRUBIN,TOTAL 0.6 MG/DL (0.1-1.0); BLOOD UREA NITROGEN 9 MG/DL (7-18); BUN/CREATININE RATIO 10.1 (6.6-38.0); CALCIUM 9.5 MG/DL (8.5-10.1); CHLORIDE 96 MMOL/L (99-107); CREATININE 0.89 MG/DL (0.40-0.90); GLUCOSE 108 MG/DL (70-104); POTASSIUM 3.7 MMOL/L (3.5-5.1); SODIUM 135 MMOL/L (135-145); TOTAL CARBON DIOXIDE 29.7 MMOL/L (24-32); TOTAL PROTEIN 8.1 G/DL (6.4-8.2); eGFR 62 ML/MIN
[2020-06-09 18:20] LABS: CLARITY,URINE SLIGHTLY CLOUDY (Clear); COLOR,URINE STRAW (Yellow); GLUCOSE, URINE NEGATIVE (Neg); KETONES,URINE NEGATIVE (Neg); LEUKOCYTE ESTERASE ,URINE NEGATIVE (Neg); NITRITES, URINE NEGATIVE (Neg); OCCULT BLOOD,URINE SMALL (Neg); PH,URINE 6.5 (4.8-8.0); PROTEIN,URINE NEGATIVE (Neg); UROBILINOGEN,URINE 0.2 E.U/dL (0.2-1.0)
[2020-06-09 18:21] LABS: UA COLLECTION TYPE CLN CATCH MIDSTREAM
[2020-06-09 18:33] LABS: BACTERIA,URINE FEW /HPF (Neg); SQUAMOUS EPITHELIAL CELL,UR FEW /LPF (FEW); WBC,URINE 0-4 /HPF (0-4)
== END 2020-06-09 18:57 | disposition home or self-care (01) ==
LOC: ER 15:47
DX: R53.1 Weakness (principal); I10 Essential (primary) hypertension; M79.604 Pain in right leg; F41.9 Anxiety disorder, unspecified; E05.90 Thyrotoxicosis, unspecified without thyrotoxic crisis or storm; Z87.440 Personal history of urinary (tract) infections; Z90.49 Acquired absence of other specified parts of digestive tract; Z90.710 Acquired absence of both cervix and uterus; Z98.890 Other specified postprocedural states; Z60.2 Problems related to living alone; Z88.5 Allergy status to narcotic agent; Z88.8 Allergy status to other drugs, medicaments and biological substances; Z79.899 Other long term (current) drug therapy
CPT/HCPCS: 36415; 71045; 80053; 81001; 83735; 83880; 84484; 85025; 93005; 99285

== ENCOUNTER 2020-06-22 14:27 | Emergency (ER) | payer MEDICARE, MEDICAID ==
[~2020-06-22] VITALS: Ht 157.5 cm; Wt 57.7 kg
[2020-06-22 14:52] LABS: BASOPHILS % (AUTO) 0.5 % (0-1); EOSINOPHILS # (AUTO) 0.1 X10'3 (0-0.9); HEMATOCRIT 37.1 % (35.0-45.0); HEMOGLOBIN 12.5 g/dl (12.0-16.0); LYMPHOCYTES # (AUTO) 1.4 X10'3 (1.1-4.8); LYMPHOCYTES % (AUTO) 22.9 % (21-51); MEAN CORPUSCULAR HEMOGLOBIN 30.6 PG (27.0-31.0); MEAN CORPUSCULAR HGB CONC 33.6 g/dL (33.0-36.5); MEAN CORPUSCULAR VOLUME 91.2 FL (78-98); MEAN PLATELET VOLUME 7.5 FL (7.4-10.4); MONOCYTES # (AUTO) 0.6 X10'3 (0-0.9); MONOCYTES % (AUTO) 9.4 % (2-12); NEUTROPHILS # (AUTO) 4.1 X10'3 (1.8-7.7); NEUTROPHILS % (AUTO) 66.2 % (42-75); PLATELET COUNT 242 X10'3 (140-440); RED BLOOD COUNT 4.07 X10'6 (4.20-5.60); RED CELL DISTRIBUTION WIDTH 13.9 % (11.5-14.5); WHITE BLOOD COUNT 6.3 X10'3 (4.5-11.0)
[2020-06-22 15:14] LABS: ALANINE AMINOTRANSFERASE 26 U/L (12-78); ALBUMIN 4.1 G/DL (3.4-5.0); ALBUMIN/GLOBULIN RATIO 1.1 (1.1-1.5); ALKALINE PHOSPHATASE 62 IU/L (46-116); ANION GAP 7 (8-16); ASPARTATE AMINO TRANSFERASE 22 U/L (10-37); BILIRUBIN,TOTAL 0.6 MG/DL (0.1-1.0); BLOOD UREA NITROGEN 13 MG/DL (7-18); BUN/CREATININE RATIO 16.9 (6.6-38.0); CALCIUM 9.6 MG/DL (8.5-10.1); CHLORIDE 98 MMOL/L (99-107); CREATININE 0.77 MG/DL (0.40-0.90); GLUCOSE 108 MG/DL (70-104); POTASSIUM 3.8 MMOL/L (3.5-5.1); SODIUM 135 MMOL/L (135-145); TOTAL CARBON DIOXIDE 30.5 MMOL/L (24-32); TOTAL PROTEIN 7.7 G/DL (6.4-8.2); eGFR 73 ML/MIN
[2020-06-22] MEDS ORDERED: ondansetron 4mg rapidly disintigrating tab PO ONE (15:15)
[2020-06-22 15:31] LABS: CLARITY,URINE CLEAR (Clear); COLOR,URINE STRAW (Yellow); GLUCOSE, URINE NEGATIVE (Neg); KETONES,URINE NEGATIVE (Neg); LEUKOCYTE ESTERASE ,URINE NEGATIVE (Neg); NITRITES, URINE NEGATIVE (Neg); OCCULT BLOOD,URINE SMALL (Neg); PROTEIN,URINE NEGATIVE (Neg); UA COLLECTION TYPE CLN CATCH MIDSTREAM; UROBILINOGEN,URINE 0.2 E.U/dL (0.2-1.0)
[2020-06-22 15:37] LABS: SQUAMOUS EPITHELIAL CELL,UR FEW /LPF (FEW); WBC,URINE 0-4 /HPF (0-4)
[2020-06-22 15:38] LABS: BACTERIA,URINE FEW /HPF (Neg)
[2020-06-22] MEDS ORDERED: ACET-1025 PO (15:51)
[2020-06-22 16:15] VITALS: BP 163/72
== END 2020-06-22 16:17 | disposition home or self-care (01) ==
LOC: ER 14:28
DX: R11.0 Nausea (principal); B02.9 Zoster without complications; M79.661 Pain in right lower leg; M79.89 Other specified soft tissue disorders; I10 Essential (primary) hypertension; E05.90 Thyrotoxicosis, unspecified without thyrotoxic crisis or storm; F41.9 Anxiety disorder, unspecified; Z87.440 Personal history of urinary (tract) infections; Z90.49 Acquired absence of other specified parts of digestive tract; Z90.710 Acquired absence of both cervix and uterus; Z98.890 Other specified postprocedural states; Z60.2 Problems related to living alone; Z88.5 Allergy status to narcotic agent; Z88.8 Allergy status to other drugs, medicaments and biological substances; Z79.899 Other long term (current) drug therapy
CPT/HCPCS: 36415; 80053; 81001; 84443; 85025; 99283

== ENCOUNTER 2020-07-04 07:17 | Emergency (ER) | payer MEDICARE, MEDICAID ==
[~2020-07-04] VITALS: Ht 157.5 cm; Wt 65.9 kg
[~2020-07-04 07:17] MED LIST changes: -ACET-812 PO; -ACET1TAB25 PO; +AMER30O RC; -AMLO-314 PO; -ASPI81TA30 PO; +CHLO25TA10 PO; -CHOL10002 PO; +ESCI5TAB PO; -FLAX1CAP6 PO; -HYDR-3686 PO; +LEVO75TA7 PO; -LEVO88TA2 PO; -LISI40TA13 PO; +LOSA100T57 PO; -MULT-1085 PO; +OMEP-50 PO; -OMEP20CA15 PO; +ONDA-103 PO; -ONDA4TAB12 PO; -PHEN-786 PO; -POLY17PO10 PO; +PRED5DRO23 EACHEYE; -PROC5TAB10 PO
[2020-07-04] MEDS ORDERED: normal saline 1000ML IV soln IVB ONE (07:35)
[2020-07-04 07:57] LABS: BASOPHILS # (AUTO) 0.1 X10'3 (0-0.2); BASOPHILS % (AUTO) 1.3 % (0-1); EOSINOPHILS # (AUTO) 0.1 X10'3 (0-0.9); EOSINOPHILS % (AUTO) 1.1 % (0-6); HEMATOCRIT 35.2 % (35.0-45.0); HEMOGLOBIN 12.3 g/dl (12.0-16.0); LYMPHOCYTES # (AUTO) 1.5 X10'3 (1.1-4.8); LYMPHOCYTES % (AUTO) 27.5 % (21-51); MEAN CORPUSCULAR HEMOGLOBIN 31.9 PG (27.0-31.0); MEAN CORPUSCULAR VOLUME 90.9 FL (78-98); MEAN PLATELET VOLUME 7.1 FL (7.4-10.4); MONOCYTES # (AUTO) 0.4 X10'3 (0-0.9); MONOCYTES % (AUTO) 8.2 % (2-12); NEUTROPHILS # (AUTO) 3.3 X10'3 (1.8-7.7); NEUTROPHILS % (AUTO) 61.9 % (42-75); PLATELET COUNT 267 X10'3 (140-440); RED BLOOD COUNT 3.87 X10'6 (4.20-5.60); RED CELL DISTRIBUTION WIDTH 14.3 % (11.5-14.5); WHITE BLOOD COUNT 5.3 X10'3 (4.5-11.0)
[2020-07-04 08:10] LABS: ALANINE AMINOTRANSFERASE 49 U/L (12-78); ALBUMIN 4.3 G/DL (3.4-5.0); ALBUMIN/GLOBULIN RATIO 1.1 (1.1-1.5); ALKALINE PHOSPHATASE 57 IU/L (46-116); ANION GAP 10 (8-16); ASPARTATE AMINO TRANSFERASE 32 U/L (10-37); BILIRUBIN,TOTAL 0.6 MG/DL (0.1-1.0); BLOOD UREA NITROGEN 8 MG/DL (7-18); BUN/CREATININE RATIO 9.9 (6.6-38.0); CALCIUM 9.4 MG/DL (8.5-10.1); CHLORIDE 94 MMOL/L (99-107); CREATININE 0.81 MG/DL (0.40-0.90); GLUCOSE 136 MG/DL (70-104); POTASSIUM 3.7 MMOL/L (3.5-5.1); SODIUM 132 MMOL/L (135-145); TOTAL CARBON DIOXIDE 28.5 MMOL/L (24-32); TOTAL PROTEIN 8.2 G/DL (6.4-8.2); eGFR 69 ML/MIN
[2020-07-04 08:13] LABS: CLARITY,URINE CLEAR (Clear); COLOR,URINE STRAW (Yellow); GLUCOSE, URINE NEGATIVE (Neg); KETONES,URINE NEGATIVE (Neg); LEUKOCYTE ESTERASE ,URINE NEGATIVE (Neg); NITRITES, URINE NEGATIVE (Neg); OCCULT BLOOD,URINE SMALL (Neg); PH,URINE 7.5 (4.8-8.0); PROTEIN,URINE NEGATIVE (Neg); UA COLLECTION TYPE VOIDED; UROBILINOGEN,URINE 0.2 E.U/dL (0.2-1.0)
[2020-07-04 08:19] LABS: SQUAMOUS EPITHELIAL CELL,UR MODERATE /LPF (FEW)
[2020-07-04 08:19] LABS: MAGNESIUM 1.9 MG/DL (1.5-2.4)
[2020-07-04 08:20] LABS: BACTERIA,URINE FEW /HPF (Neg); WBC,URINE 0-4 /HPF (0-4)
[2020-07-04 09:16] VITALS: BP 150/80
== END 2020-07-04 09:22 | disposition home or self-care (01) ==
LOC: ER 07:17
DX: R53.1 Weakness (principal); I10 Essential (primary) hypertension; E03.9 Hypothyroidism, unspecified; F41.9 Anxiety disorder, unspecified; F32.9 Major depressive disorder, single episode, unspecified; Z90.49 Acquired absence of other specified parts of digestive tract; Z90.710 Acquired absence of both cervix and uterus; Z98.890 Other specified postprocedural states; Z60.2 Problems related to living alone; Z88.8 Allergy status to other drugs, medicaments and biological substances; Z88.5 Allergy status to narcotic agent; Z79.82 Long term (current) use of aspirin; Z79.899 Other long term (current) drug therapy
CPT/HCPCS: 36415; 71045; 80053; 81001; 83735; 83880; 84443; 84484; 85025; 93005; 99285; J7030

== ENCOUNTER 2020-08-28 00:52 | Emergency (ER) | payer MEDICARE, MEDICAID ==
[~2020-08-28] VITALS: Ht 157.5 cm; Wt 60.0 kg
[2020-08-28] MEDS ORDERED: normal saline 1000ml 1,000 ML IV ONE (01:05)
[2020-08-28] MEDS ORDERED: ondansetron/PF 4mg/2ml inj IV ONE (01:05)
[2020-08-28 01:42] LABS: BASOPHILS % (AUTO) 0.4 % (0-1); EOSINOPHILS % (AUTO) 0.5 % (0-6); HEMATOCRIT 36.6 % (35.0-45.0); HEMOGLOBIN 12.7 g/dl (12.0-16.0); LYMPHOCYTES # (AUTO) 1.4 X10'3 (1.1-4.8); LYMPHOCYTES % (AUTO) 19.4 % (21-51); MEAN CORPUSCULAR HEMOGLOBIN 32.1 PG (27.0-31.0); MEAN CORPUSCULAR HGB CONC 34.7 g/dL (33.0-36.5); MEAN CORPUSCULAR VOLUME 92.5 FL (78-98); MEAN PLATELET VOLUME 7.3 FL (7.4-10.4); MONOCYTES # (AUTO) 0.6 X10'3 (0-0.9); MONOCYTES % (AUTO) 8.4 % (2-12); NEUTROPHILS # (AUTO) 5.2 X10'3 (1.8-7.7); NEUTROPHILS % (AUTO) 71.3 % (42-75); PLATELET COUNT 224 X10'3 (140-440); RED BLOOD COUNT 3.95 X10'6 (4.20-5.60); RED CELL DISTRIBUTION WIDTH 14.7 % (11.5-14.5); WHITE BLOOD COUNT 7.2 X10'3 (4.5-11.0)
[2020-08-28 01:45] LABS: ALANINE AMINOTRANSFERASE 22 U/L (12-78); ALBUMIN 4.4 G/DL (3.4-5.0); ALBUMIN/GLOBULIN RATIO 1.2 (1.1-1.5); ALKALINE PHOSPHATASE 62 IU/L (46-116); ANION GAP 9 (8-16); ASPARTATE AMINO TRANSFERASE 14 U/L (10-37); BILIRUBIN,TOTAL 0.7 MG/DL (0.1-1.0); BLOOD UREA NITROGEN 7 MG/DL (7-18); BUN/CREATININE RATIO 9.1 (6.6-38.0); CALCIUM 8.9 MG/DL (8.5-10.1); CHLORIDE 98 MMOL/L (99-107); CREATININE 0.77 MG/DL (0.40-0.90); GLUCOSE 120 MG/DL (70-104); POTASSIUM 3.5 MMOL/L (3.5-5.1); SODIUM 133 MMOL/L (135-145); TOTAL CARBON DIOXIDE 25.7 MMOL/L (24-32); eGFR 73 ML/MIN
[2020-08-28 01:47] LABS: CLARITY,URINE CLEAR (Clear); COLOR,URINE YELLOW (Yellow); GLUCOSE, URINE NEGATIVE (Neg); KETONES,URINE NEGATIVE (Neg); LEUKOCYTE ESTERASE ,URINE NEGATIVE (Neg); NITRITES, URINE NEGATIVE (Neg); OCCULT BLOOD,URINE SMALL (Neg); PROTEIN,URINE NEGATIVE (Neg); UA COLLECTION TYPE CLN CATCH MIDSTREAM; UROBILINOGEN,URINE 0.2 E.U/dL (0.2-1.0)
[2020-08-28 01:59] LABS: BACTERIA,URINE NONE SEEN /HPF (Neg); RBC,URINE 0-2 /HPF (0-2); SQUAMOUS EPITHELIAL CELL,UR NONE SEEN /LPF (FEW); WBC,URINE NONE SEEN /HPF (0-4)
[2020-08-28 03:08] VITALS: BP 132/58
--- NOTE | 2020-08-28 03:31 | NUR ---
PT IS DC READY. [employer] CALLED (SELF PAY) FOR HER FOR DC TRANSPORT. PT WITH STABLE VS.
== END 2020-08-28 04:00 | disposition home or self-care (01) ==
LOC: ER 00:54
DX: R11.0 Nausea (principal); R42 Dizziness and giddiness; I10 Essential (primary) hypertension; K21.9 Gastro-esophageal reflux disease without esophagitis; E03.9 Hypothyroidism, unspecified; F41.9 Anxiety disorder, unspecified; F32.9 Major depressive disorder, single episode, unspecified; Z90.49 Acquired absence of other specified parts of digestive tract; Z90.710 Acquired absence of both cervix and uterus; Z98.890 Other specified postprocedural states; Z60.2 Problems related to living alone; Z88.8 Allergy status to other drugs, medicaments and biological substances; Z88.5 Allergy status to narcotic agent; Z79.899 Other long term (current) drug therapy
CPT/HCPCS: 36415; 80053; 81001; 85025; 93005; 96361; 96374; 99284; J2405; J7030

== ENCOUNTER 2021-08-26 18:44 | Emergency (ER) | payer MEDICARE, MEDICAID ==
[~2021-08-26] VITALS: Ht 157.5 cm; Wt 63.6 kg
[~2021-08-26 18:44] MED LIST changes: +APIX5TAB3 PO; -CHLO25TA10 PO; +CLON-527 PO; +CLON-528 PO; -ESCI5TAB PO; +LOP12.5T PO; -OMEP-50 PO; +OMEP20CA16 PO; +SERT25TA PO
[2021-08-26] MEDS ORDERED: apixaban 5mg tablet PO STA (20:30)
[2021-08-26] MEDS ORDERED: metoprolol tartrate 50mg tablet PO ONE (20:30)
[2021-08-26] MEDS ORDERED: losartan 50mg tablet PO STA (20:30)
[2021-08-27 00:15] VITALS: BP 157/73
== END 2021-08-26 21:45 | disposition home or self-care (01) ==
LOC: ER 18:46
DX: I10 Essential (primary) hypertension (principal); R42 Dizziness and giddiness; K21.9 Gastro-esophageal reflux disease without esophagitis; E03.9 Hypothyroidism, unspecified; Z86.19 Personal history of other infectious and parasitic diseases; Z90.49 Acquired absence of other specified parts of digestive tract; Z90.710 Acquired absence of both cervix and uterus; Z88.8 Allergy status to other drugs, medicaments and biological substances; Z79.899 Other long term (current) drug therapy
CPT/HCPCS: 99284

== ENCOUNTER 2022-06-10 17:55 | Emergency (ER) | payer MEDICARE, MEDICAID ==
[~2022-06-10] VITALS: Ht 157.5 cm; Wt 65.0 kg
--- NOTE | 2022-06-10 18:30 | NUR ---
ABRASIONS TO NOSE/FOREHEAD/UPPER LIP. NO BLEEDING AT ALL HER RIGHT KNEE HURTS, SHE HAD A BRACE ON IT, REMOVED THAT AND PUT HER INTO A GOWN.
[2022-06-10 20:35] VITALS: BP 154/79
== END 2022-06-10 20:38 | disposition home or self-care (01) ==
LOC: ER 17:56
DX: S01.21XA Laceration without foreign body of nose, initial encounter (principal); S80.01XA Contusion of right knee, initial encounter; K21.9 Gastro-esophageal reflux disease without esophagitis; I10 Essential (primary) hypertension; F31.9 Bipolar disorder, unspecified; E03.9 Hypothyroidism, unspecified; Z88.8 Allergy status to other drugs, medicaments and biological substances; Z88.5 Allergy status to narcotic agent; Z79.899 Other long term (current) drug therapy; Z79.1 Long term (current) use of non-steroidal anti-inflammatories (NSAID); W19.XXXA Unspecified fall, initial encounter; Y93.89 Activity, other specified; Y92.89 Other specified places as the place of occurrence of the external cause; Y99.8 Other external cause status
CPT/HCPCS: 70450; 73564; 99284

== ENCOUNTER 2022-07-23 10:11 | Emergency (ER) | payer MEDICARE, MEDICAID ==
[~2022-07-23] VITALS: Ht 157.5 cm; Wt 63.0 kg
[~2022-07-23 10:11] MED LIST changes: -LOSA100T57 PO; +LOSA100T58 PO
[2022-07-23 10:54] LABS: BASOPHILS % (AUTO) 0.7 % (0-1); EOSINOPHILS # (AUTO) 0.2 X10'3 (0-0.9); EOSINOPHILS % (AUTO) 3.7 % (0-6); HEMATOCRIT 37.7 % (35.0-45.0); HEMOGLOBIN 12.8 g/dl (12.0-16.0); LYMPHOCYTES # (AUTO) 1.2 X10'3 (1.1-4.8); LYMPHOCYTES % (AUTO) 22.9 % (21-51); MEAN CORPUSCULAR HEMOGLOBIN 30.7 PG (27.0-31.0); MEAN CORPUSCULAR HGB CONC 33.9 g/dL (33.0-36.5); MEAN CORPUSCULAR VOLUME 90.6 FL (78-98); MEAN PLATELET VOLUME 7.7 FL (7.4-10.4); MONOCYTES # (AUTO) 0.6 X10'3 (0-0.9); MONOCYTES % (AUTO) 11.4 % (2-12); NEUTROPHILS # (AUTO) 3.1 X10'3 (1.8-7.7); NEUTROPHILS % (AUTO) 61.3 % (42-75); PLATELET COUNT 211 X10'3 (140-440); RED BLOOD COUNT 4.16 X10'6 (4.20-5.60); RED CELL DISTRIBUTION WIDTH 13.8 % (11.5-14.5); WHITE BLOOD COUNT 5.1 X10'3 (4.5-11.0)
[2022-07-23 11:16] LABS: ALANINE AMINOTRANSFERASE 10 U/L (12-78); ALBUMIN 3.8 G/DL (3.4-5.0); ALKALINE PHOSPHATASE 76 IU/L (46-116); ANION GAP 3 (8-16); ASPARTATE AMINO TRANSFERASE 18 U/L (10-37); BILIRUBIN,TOTAL 0.4 MG/DL (0.1-1.0); BLOOD UREA NITROGEN 12 MG/DL (7-18); BUN/CREATININE RATIO 13.2 (10.0-20.0); CALCIUM 9.4 MG/DL (8.5-10.1); CHLORIDE 104 MMOL/L (99-107); CREATININE 0.91 MG/DL (0.40-0.90); GLUCOSE 99 MG/DL (70-104); POTASSIUM 3.9 MMOL/L (3.5-5.1); SODIUM 139 MMOL/L (135-145); TOTAL CARBON DIOXIDE 31.9 MMOL/L (24-32); TOTAL PROTEIN 7.6 G/DL (6.4-8.2); eGFR 60 ML/MIN
[2022-07-23] MEDS ORDERED: NIFEdipine XL 30mg tablet PO ONE (14:45)
[2022-07-23 15:05] VITALS: BP 161/76
== END 2022-07-23 15:07 | disposition home or self-care (01) ==
LOC: ER 10:11
DX: I10 Essential (primary) hypertension (principal); K21.9 Gastro-esophageal reflux disease without esophagitis; E03.9 Hypothyroidism, unspecified; F31.9 Bipolar disorder, unspecified; Z88.5 Allergy status to narcotic agent; Z88.8 Allergy status to other drugs, medicaments and biological substances; Z79.899 Other long term (current) drug therapy
CPT/HCPCS: 36415; 71045; 80053; 83880; 84484; 85025; 93005; 99285

== ENCOUNTER 2023-01-17 09:04 | Emergency (ER) | payer MEDICARE, MEDICAID ==
[~2023-01-17] VITALS: Ht 157.5 cm; Wt 66.5 kg
[2023-01-17 11:36] VITALS: TEMP 98.2
[2023-01-17 11:52] LABS: BILIRUBIN,URINE NEGATIVE (Neg); CLARITY,URINE CLEAR (Clear); COLOR,URINE YELLOW (Yellow); GLUCOSE, URINE NEGATIVE (Neg); KETONES,URINE NEGATIVE (Neg); LEUKOCYTE ESTERASE ,URINE NEGATIVE (Neg); NITRITES, URINE NEGATIVE (Neg); OCCULT BLOOD,URINE TRACE-INTACT (Neg); PH,URINE 7.5 (4.8-8.0); PROTEIN,URINE NEGATIVE (Neg); UROBILINOGEN,URINE 0.2 E.U/dL (0.2-1.0)
[2023-01-17 12:08] LABS: BASOPHILS % (AUTO) 0.4 % (0-1); EOSINOPHILS # (AUTO) 0.1 X10'3 (0-0.9); EOSINOPHILS % (AUTO) 0.8 % (0-6); HEMATOCRIT 38.2 % (35.0-45.0); HEMOGLOBIN 13.1 g/dl (12.0-16.0); LYMPHOCYTES # (AUTO) 1.3 X10'3 (1.1-4.8); LYMPHOCYTES % (AUTO) 15.8 % (21-51); MEAN CORPUSCULAR HEMOGLOBIN 30.2 PG (27.0-31.0); MEAN CORPUSCULAR HGB CONC 34.3 g/dL (33.0-36.5); MEAN CORPUSCULAR VOLUME 88.2 FL (78-98); MEAN PLATELET VOLUME 8.3 FL (7.4-10.4); MONOCYTES # (AUTO) 0.7 X10'3 (0-0.9); MONOCYTES % (AUTO) 8.4 % (2-12); NEUTROPHILS # (AUTO) 6.1 X10'3 (1.8-7.7); NEUTROPHILS % (AUTO) 74.6 % (42-75); PLATELET COUNT 256 X10'3 (140-440); RED BLOOD COUNT 4.33 X10'6 (4.20-5.60); RED CELL DISTRIBUTION WIDTH 13.6 % (11.5-14.5); WHITE BLOOD COUNT 8.1 X10'3 (4.5-11.0)
[2023-01-17 12:11] LABS: UA COLLECTION TYPE CLN CATCH MIDSTREAM
[2023-01-17 12:13] LABS: BACTERIA,URINE FEW /HPF (Neg); RBC,URINE 0-2 /HPF (0-2); SQUAMOUS EPITHELIAL CELL,UR FEW /LPF (FEW); WBC,URINE 0-4 /HPF (0-4)
[2023-01-17 12:14] LABS: ALANINE AMINOTRANSFERASE 18 U/L (12-78); ALBUMIN 3.8 G/DL (3.4-5.0); ALKALINE PHOSPHATASE 75 IU/L (46-116); ANION GAP 6 (8-16); ASPARTATE AMINO TRANSFERASE 22 U/L (10-37); BILIRUBIN,TOTAL 0.5 MG/DL (0.1-1.0); BLOOD UREA NITROGEN 6 MG/DL (7-18); BUN/CREATININE RATIO 7.1 (10.0-20.0); CALCIUM 9.7 MG/DL (8.5-10.1); CHLORIDE 92 MMOL/L (99-107); CREATININE 0.85 MG/DL (0.40-0.90); GLUCOSE 102 MG/DL (70-104); SODIUM 127 MMOL/L (135-145); TOTAL CARBON DIOXIDE 29.5 MMOL/L (24-32); TOTAL PROTEIN 7.5 G/DL (6.4-8.2); eCRCL 43 ML/MIN; eGFR 65 ML/MIN
[2023-01-17 12:23] LABS: C-REACTIVE PROTEIN 0.14 MG/DL (0.0-0.5); PRO BRAIN NATRIURETIC PEPTIDE 308 PG/ML (0-450)
[2023-01-17 15:43] VITALS: BP 153/68; PULSE 62; RESP 16; O2SAT 98
== END 2023-01-17 15:48 | disposition home or self-care (01) ==
LOC: ER 09:05
DX: I10 Essential (primary) hypertension (principal); R11.0 Nausea; E87.1 Hypo-osmolality and hyponatremia; K21.9 Gastro-esophageal reflux disease without esophagitis; E03.9 Hypothyroidism, unspecified; Z88.5 Allergy status to narcotic agent; Z88.8 Allergy status to other drugs, medicaments and biological substances; Z79.899 Other long term (current) drug therapy; Z90.49 Acquired absence of other specified parts of digestive tract; Z90.710 Acquired absence of both cervix and uterus
CPT/HCPCS: 36415; 74022; 80053; 81001; 83880; 84484; 85025; 86140; 93005; 99285

== ENCOUNTER 2023-01-31 23:31 | Emergency (ER) | payer MEDICARE, MEDICAID ==
[~2023-01-31] VITALS: Ht 157.5 cm; Wt 68.0 kg
[2023-01-31 23:48] VITALS: TEMP 97.6
[2023-02-01] MEDS ORDERED: amLODIPine 5mg tablet PO ONE (01:20)
[2023-02-01 02:00] VITALS: BP 190/84; PULSE 63; RESP 14; O2SAT 96
== END 2023-02-01 02:21 | disposition home or self-care (01) ==
LOC: ER 23:32
DX: I10 Essential (primary) hypertension (principal); K21.9 Gastro-esophageal reflux disease without esophagitis; E03.9 Hypothyroidism, unspecified; Z88.5 Allergy status to narcotic agent; Z88.8 Allergy status to other drugs, medicaments and biological substances; Z79.899 Other long term (current) drug therapy; Z90.49 Acquired absence of other specified parts of digestive tract; Z90.710 Acquired absence of both cervix and uterus
CPT/HCPCS: 99284

== ENCOUNTER 2023-05-27 10:14 | Emergency (ER) | payer MEDICARE, MEDICAID ==
[~2023-05-27] VITALS: Ht 157.5 cm; Wt 66.9 kg
[~2023-05-27 10:14] MED LIST changes: -CLON-528 PO; +CLON-850 PO
[2023-05-27 10:15] VITALS: BP 170/73; PULSE 90; RESP 16; TEMP 98; O2SAT 98
== END 2023-05-27 11:20 | disposition home or self-care (01) ==
LOC: ER 10:15
DX: S63.592A Other specified sprain of left wrist, initial encounter (principal); S63.591A Other specified sprain of right wrist, initial encounter; W19.XXXA Unspecified fall, initial encounter; Y93.89 Activity, other specified; Y92.89 Other specified places as the place of occurrence of the external cause; Y99.8 Other external cause status
CPT/HCPCS: 73110; 73130; 99284

== ENCOUNTER 2023-11-27 11:25 | Emergency (ER) | payer MEDICARE, MEDICAID ==
[~2023-11-27] VITALS: Ht 157.5 cm; Wt 65.0 kg
[2023-11-27 12:29] LABS: BASOPHILS % (AUTO) 0.8 % (0-1); EOSINOPHILS # (AUTO) 0.2 X10'3 (0-0.9); EOSINOPHILS % (AUTO) 3.7 % (0-6); HEMATOCRIT 39.5 % (35.0-45.0); HEMOGLOBIN 13.1 g/dl (12.0-16.0); LYMPHOCYTES # (AUTO) 1.6 X10'3 (1.1-4.8); MEAN CORPUSCULAR HEMOGLOBIN 30.2 PG (27.0-31.0); MEAN CORPUSCULAR HGB CONC 33.1 g/dL (33.0-36.5); MEAN CORPUSCULAR VOLUME 91.2 FL (78-98); MEAN PLATELET VOLUME 8.3 FL (7.4-10.4); MONOCYTES # (AUTO) 0.5 X10'3 (0-0.9); NEUTROPHILS # (AUTO) 3.4 X10'3 (1.8-7.7); NEUTROPHILS % (AUTO) 58.5 % (42-75); PLATELET COUNT 228 X10'3 (140-440); RED BLOOD COUNT 4.34 X10'6 (4.20-5.60); RED CELL DISTRIBUTION WIDTH 14.4 % (11.5-14.5); WHITE BLOOD COUNT 5.7 X10'3 (4.5-11.0)
[2023-11-27 12:43] LABS: ALANINE AMINOTRANSFERASE 17 U/L (12-78); ALBUMIN 3.8 G/DL (3.4-5.0); ALKALINE PHOSPHATASE 75 IU/L (46-116); ANION GAP 9 (8-16); ASPARTATE AMINO TRANSFERASE 18 U/L (10-37); BILIRUBIN,TOTAL 0.6 MG/DL (0.1-1.0); BLOOD UREA NITROGEN 11 MG/DL (7-18); CALCIUM 9.6 MG/DL (8.5-10.1); CHLORIDE 105 MMOL/L (99-107); CREATININE 0.92 MG/DL (0.40-0.90); GLUCOSE 105 MG/DL (70-104); LIPASE 43 U/L (16-77); SODIUM 141 MMOL/L (135-145); TOTAL CARBON DIOXIDE 27.3 MMOL/L (24-32); TOTAL PROTEIN 7.8 G/DL (6.4-8.2); eCRCL 39 ML/MIN; eGFR 59 ML/MIN
[2023-11-27 14:02] VITALS: TEMP 98.8
[2023-11-27 14:29] LABS: BASOPHILS % (AUTO) 0.7 % (0-1); EOSINOPHILS # (AUTO) 0.1 X10'3 (0-0.9); EOSINOPHILS % (AUTO) 1.6 % (0-6); HEMATOCRIT 39.9 % (35.0-45.0); HEMOGLOBIN 13.2 g/dl (12.0-16.0); LYMPHOCYTES # (AUTO) 1.3 X10'3 (1.1-4.8); LYMPHOCYTES % (AUTO) 19.5 % (21-51); MEAN CORPUSCULAR HEMOGLOBIN 30.3 PG (27.0-31.0); MEAN CORPUSCULAR VOLUME 91.7 FL (78-98); MEAN PLATELET VOLUME 7.9 FL (7.4-10.4); MONOCYTES # (AUTO) 0.6 X10'3 (0-0.9); MONOCYTES % (AUTO) 8.4 % (2-12); NEUTROPHILS # (AUTO) 4.7 X10'3 (1.8-7.7); NEUTROPHILS % (AUTO) 69.8 % (42-75); PLATELET COUNT 207 X10'3 (140-440); RED BLOOD COUNT 4.36 X10'6 (4.20-5.60); RED CELL DISTRIBUTION WIDTH 14.6 % (11.5-14.5); WHITE BLOOD COUNT 6.8 X10'3 (4.5-11.0)
[2023-11-27 14:45] LABS: OCCULT BLOOD STOOL POSITIVE (Neg)
[2023-11-27 15:25] VITALS: BP 166/72; PULSE 68; RESP 15; O2SAT 97
== END 2023-11-27 15:28 | disposition home or self-care (01) ==
LOC: ER 11:26
DX: K92.1 Melena (principal); I10 Essential (primary) hypertension; K21.9 Gastro-esophageal reflux disease without esophagitis; E03.9 Hypothyroidism, unspecified; F41.9 Anxiety disorder, unspecified; F32.A Depression, unspecified; Z88.8 Allergy status to other drugs, medicaments and biological substances; Z79.899 Other long term (current) drug therapy; Z79.52 Long term (current) use of systemic steroids; Z90.49 Acquired absence of other specified parts of digestive tract; Z90.710 Acquired absence of both cervix and uterus; Z60.2 Problems related to living alone; Z88.5 Allergy status to narcotic agent
CPT/HCPCS: 36415; 80053; 82272; 83690; 85025; 99283

== ENCOUNTER 2024-08-18 18:35 | Emergency (ER) | payer MEDICARE, MEDICAID ==
[~2024-08-18] VITALS: Ht 157.5 cm; Wt 58.2 kg
--- NOTE | 2024-08-18 18:53 | Physician Documentation ---
History of Present Illness ~ Stated Complaint: "I MIGHT HAVE SOMETHING STUCK IN MY THROAT" Time Seen by MD: 18:56 OK to notify your PCP?: Yes Primary Medical Doctor: JIMBO BROCK Source: patient, RN/MD Mode of Arrival: POV Exam Limitations: no limitations HPI 79-year-old female presents with the feeling of something stuck in her throat after having a subway sandwich with meat in it, patient states that while she was chewing she took a breath and accidentally inhaled some food a little bit but immediately began to cough it up and denies any aspiration. Patient denies any current shortness of breath but she states she is having some mucus in her throat that is bothering her. She states that she coughed and thought she got some of it out but still feels like there may be something stuck in there. She is able to drink water but feels that it is very slow in his certain location in her throat and then is able to pass. No vomiting. Airway clear. The patient is able to drink a can of soda and was able to finish it. Medication Reconciliation Allergies: Coded Allergies: fluoxetine (Verified Allergy, Unknown, 01/31/23) codeine (Verified Adverse Reaction, Unknown, NAUSEA, 01/31/23) fentanyl (Verified Adverse Reaction, Unknown, 01/31/23) BP DROPS, "REAL SICK" Scheduled Apixaban (Eliquis), 5 MG PO BID Levothyroxine Sodium (Levothyroxine Sodium), 1 TAB PO DAILY, (Reported) Losartan Potassium (Losartan Potassium), 1 TAB PO HS, (Reported) Metoprolol Tartrate (Lopressor tablet), 12.5 MG PO BID Omeprazole (Omeprazole), 1 CAP PO DAILY, (Reported) Prednisolone Acetate/Pf (Prednisolone Acet 1% Eye Drop), 1 DROP EACHEYE BID, (Reported) Sertraline Hcl* (Zoloft*), 1 TAB PO DAILY, (Reported) Scheduled PRN Benzocaine/Benzethon Cl (Americaine), 1 APPLIC RC TID PRN for itching Clonazepam (Klonopin), 0.5 MG PO DAILY PRN for for anxiety/agitation, (Reported) Clonazepam* (Klonopin*), 1 MG PO DAILY PRN for for anxiety/agitation, (Reported) Ondansetron HCl (Ondansetron HCl), 1 TAB PO Q6H PRN for nausea, (Reported) Past Medical History Past Medical History: Hypertension, Constipation, GERD, Inflammatory Bowel Dz, UTI, Hypothyroidism, Herpes Zoster, Anxiety, Depression Past Surgical History: cholecystectomy, hysterectomy, other Other Past Surgical History: cataracts Patient History: Patient reports no known family medical history. Alcohol Use: None Drug Use: none Lives with: Alone Lives In: Home Occupation: retired Review of Systems All Other Systems at this time: Reviewed and Negative Constitutional: Denies: chills, fever, weakness Eyes: Denies: pain, blurred vision ENT: Denies: ear pain, nose pain, throat pain, mouth pain Respiratory: Denies: cough, shortness of breath Cardiovascular: Denies: chest pain, palpitations Gastrointestinal: Denies: abdominal pain, nausea, vomiting Genitourinary: Denies: burning, dysuria Female Genitalia: Denies: vaginal discharge, pelvic pain Neurological: Denies: headache, dizziness Musculoskeletal: Denies: pain, swelling Integumentary: Denies: rash, lesions Allergic/Immunologic: Denies: hives, itching Hematologic/Lymphatic: Denies: no symptoms reported Psychiatric: Denies: depression, anxiety Physical Exam Vital Signs: RN Vital Signs have been reviewed: Yes Pulse Oximetry Reflects: adequate oxygenation Physical Exam General: Alert, no distress. HEENT: No injection, moist mucous membranes. Neck: Full range of motion. Respiratory: No respiratory distress, equal chest rise and fall. Chest: No accessory muscle use. Cardiovascular: Regular rate and rhythm. Gastrointestinal: Nondistended. Extremities: Normal range of motion, no deformity. Neurologic: Oriented x4. Psychiatric: Normal mood and affect. Skin: Normal color, warm and dry. Progress Results/Orders Results/Orders Orders - CHRISTOPHER DANIEL PAC Chest,Two Views (08/18/24 20:01) Completed Orders - CHRISTOPHER DANIEL PAC Chest,Two Views (08/18/24 20:01) Vital Signs 08/18/24 08/18/24 08/18/24 18:49 19:01 19:05 Temp 98.2 98.2 Pulse 89 76 Resp 16 16 16 B/P (MAP) 170/96 178/83 (114) Pulse Ox 98 98 O2 Flow Rate 0 0 EKG/XRAY/CT/US/VASC/MRI Chest X-Ray : Additional Comments Chest x-ray interpreted by myself today shows no sign of large infiltrate, no large effusion, normal mediastinum. DIAGNOSTIC RADIOLOGY Patient: KAILYN LARSON Medical Record: [id number] [facility] : 1945, Age: 79 Sex: Female Location: ER Patient Status: REG ER Service Date/Time: 08/18/242000 Ordering Physician: CHRISTOPHER DANIEL PAC Exam: CHEST,TWO VIEWS DI CHEST,TWO VIEWS CLINICAL HISTORY: sob COMPARISON: None TECHNIQUE: Frontal and lateral view of the chest was obtained FINDINGS: Lines and Tubes: None Lungs: No focal consolidation. Pleura: No effusion. No pneumothorax. Cardiomediastinal contours: Unremarkable Bones: No acute osseous abnormality. IMPRESSION: No acute cardiopulmonary disease. Electronically Signed by:JACKELINE BOCANEGRA DO Date & Time: 08/18/242043 Dictated by: JACKELINE BOCANEGRA DO Dictation date and time: 08/18/242043 Primary Care Provider: NO PRIMARY CARE PROVIDER cc: CHRISTOPHER DANIEL PAC ~ Medical Decision Making Findings 79-year-old female presents with the feeling of something stuck in her throat after having a subway sandwich with meat in it, patient states that while she was chewing she took a breath and accidentally inhaled some food a little bit but immediately began to cough it up and denies any aspiration. Patient denies any current shortness of breath but she states she is having some mucus in her throat that is bothering her. She states that she coughed and thought she got some of it out but still feels like there may be something stuck in there. She is able to drink water but feels that it is very slow in his certain location in her throat and then is able to pass. No vomiting. Airway clear. The patient is able to drink a can of soda and was able to finish it. Chest x-ray was unremarkable, patient has fairly benign history and physical exam findings and is now tolerating liquid by mouth and has no stridor on exam and vital signs are stable. Patient will follow up with primary care in 2-5 days for re-evaluation if no better as needed sooner. Return to ED with any worsening, concerning or changing symptoms. Departure Disposition: HOME / SELF CARE / HOMELESS Impression: Primary Impression: Irritation of pharynx Condition: Improved Discharge Instructions: Sore Throat Additional Instructions: Chest x-ray was unremarkable, patient has fairly benign history and physical exam findings and is now tolerating liquid by mouth and has no stridor on exam and vital signs are stable. Patient will follow up with primary care in 2-5 days for re-evaluation if no better as needed sooner. Return to ED with any worsening, concerning or changing symptoms. Referrals: NO PRIMARY CARE PROVIDER (PCP) Additional Comment Medical Screen Exam This patient recieved a medical screening examination. After reviewing the individual's medical complaints with presenting symptoms and performing an appropriate physical examination, it was determined that no immediate life- threatening emergency medical condition is present. This individual is also not a women having contractions. Signature Scribe Signature: No scribe Attestation: No scribe LINUS REYES [employer] Aug 18, 2024 18:53 CHRISTOPHER DANIEL PAC Aug 18, 2024 20:07
[2024-08-18 19:05] VITALS: BP 178/83; PULSE 76; RESP 16; O2SAT 98
--- NOTE | 2024-08-18 20:47 | RADIOLOGY REPORT ---
DI CHEST,TWO VIEWS CLINICAL HISTORY: sob COMPARISON: None TECHNIQUE: Frontal and lateral view of the chest was obtained FINDINGS: Lines and Tubes: None Lungs: No focal consolidation. Pleura: No effusion. No pneumothorax. Cardiomediastinal contours: Unremarkable Bones: No acute osseous abnormality. IMPRESSION: No acute cardiopulmonary disease.
[2024-08-18 21:16] VITALS: TEMP 98.2
== END 2024-08-18 21:15 | disposition home or self-care (01) ==
LOC: ER 18:36
DX: J39.2 Other diseases of pharynx (principal); E03.9 Hypothyroidism, unspecified; I10 Essential (primary) hypertension; F41.9 Anxiety disorder, unspecified; F32.A Depression, unspecified; K21.9 Gastro-esophageal reflux disease without esophagitis; Z87.440 Personal history of urinary (tract) infections; Z88.5 Allergy status to narcotic agent; Z90.49 Acquired absence of other specified parts of digestive tract; Z90.710 Acquired absence of both cervix and uterus
CPT/HCPCS: 71046; 99283

== ENCOUNTER 2024-11-30 06:38 | Emergency (ER) | payer MEDICARE, MEDICAID ==
[~2024-11-30] VITALS: Ht 157.5 cm; Wt 66.8 kg
--- NOTE | 2024-11-30 07:07 | ELECTROCARDIOGRAPH REPORT ---
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
--- NOTE | 2024-11-30 07:11 | Physician Documentation ---
History of Present Illness ~ Chief Complaint: Chest Pain Stated Complaint: CHEST PAIN/ALLERGIC REACTION Time Seen by MD: 07:11 [facility] HPI 79-year-old female history of hypertension, paroxysmal atrial fibrillation on Eliquis presenting for rapid heart rate. She reports around 530 this morning she awoke from sleep with a mild tightness in her left chest although she always has chest wall discomfort while sleeping and this was no different. Mostly she was concerned because she felt flushed. She got up to check her heart rate and noticed it was AFib with an elevated rate. No chest pain. No shortness of breath. No abdominal pain no fever no cough no lower extremity swelling. Medication Reconciliation Allergies: Coded Allergies: fluoxetine (Verified Allergy, Unknown, 11/30/24) codeine (Verified Adverse Reaction, Unknown, NAUSEA, 11/30/24) fentanyl (Verified Adverse Reaction, Unknown, 11/30/24) BP DROPS, "REAL SICK" Scheduled Apixaban (Eliquis), 5 MG PO BID Levothyroxine Sodium (Levothyroxine Sodium), 1 TAB PO DAILY, (Reported) Losartan Potassium (Losartan Potassium), 1 TAB PO HS, (Reported) Metoprolol Tartrate (Lopressor tablet), 12.5 MG PO BID Omeprazole (Omeprazole), 1 CAP PO DAILY, (Reported) Prednisolone Acetate/Pf (Prednisolone Acet 1% Eye Drop), 1 DROP EACHEYE BID, (Reported) Sertraline Hcl* (Zoloft*), 1 TAB PO DAILY, (Reported) Scheduled PRN Benzocaine/Benzethon Cl (Americaine), 1 APPLIC RC TID PRN for itching Clonazepam (Klonopin), 0.5 MG PO DAILY PRN for for anxiety/agitation, (Reported) Clonazepam* (Klonopin*), 1 MG PO DAILY PRN for for anxiety/agitation, (Reported) Ondansetron HCl (Ondansetron HCl), 1 TAB PO Q6H PRN for nausea, (Reported) Past Medical History Past Medical History: Hypertension, Constipation, GERD, Inflammatory Bowel Dz, UTI, Hypothyroidism, Herpes Zoster, Anxiety, Depression Past Surgical History: cholecystectomy, hysterectomy, other Other Past Surgical History: cataracts Patient History: Patient reports no known family medical history. Alcohol Use: None Drug Use: none Lives with: Alone Lives In: Home Occupation: retired Review of Systems All Other Systems at this time: Reviewed and Negative Physical Exam Vital Signs: Temperature: 97.5, Source: Temporal, Heart Rate: 139, Respiratory Rate: 22, BP: 156/71, Pulse Oximetry: 98, Weight: 66.800 Oxygen Flow Rate: 0 Physical Exam Nontoxic appearing no acute distress No JVD Lungs clear to auscultation bilaterally no wheezing rhonchi or rales No murmur, irregular Heart rate Abdomen is soft nontender Lower extremity no edema Awake alert oriented normal speech normal strength Progress Progress Note 8am spontaneously converted to normal sinus rhythm Results/Orders Results/Orders Orders - SRINI BARRIOS MD Chest,Single View (11/30/24 06:57) Monitor (11/30/24 06:57) Saline Lock (11/30/24 06:57) Oxygen (11/30/24 06:57) Hs Troponin I W Calculations (11/30/24 09:57) Completed Orders - SRINI BARRIOS MD Chest,Single View (11/30/24 06:57) Cbc/Diff (11/30/24 06:57) BMP (11/30/24 06:57) PBNP (11/30/24 06:57) Electrocardiogram (11/30/24 06:57) Hs Troponin I W Calculations (11/30/24 06:57) Hs Troponin I W Calculations (11/30/24 08:57) Diltiazem Iv (Cardizem Iv 5mg/Ml Inj.) (11/30/24 07:20) Electrocardiogram (11/30/24 ) Vital Signs 11/30/24 11/30/24 11/30/24 11/30/24 06:46 07:13 08:00 08:02 Temp 97.5 Pulse 139 64 66 Resp 22 20 14 B/P (MAP) 156/71 132/70 (90) 132/70 Pulse Ox 98 95 O2 Flow Rate 0 11/30/24 09:31 Pulse 68 Resp 12 B/P (MAP) 140/85 (103) Pulse Ox 98 Laboratory Tests Test 11/30/24 07:53 11/30/24 08:57 White Blood Count 5.4 Red Blood Count 4.57 Hemoglobin 13.9 Hematocrit 40.8 Mean Corpuscular Volume 89.3 Mean Corpuscular Hemoglobin 30.3 Mean Corpuscular Hemoglobin Concent 33.9 Red Cell Distribution Width 14.5 Platelet Count 232 Mean Platelet Volume 7.9 Neutrophils (%) (Auto) 52.6 Lymphocytes (%) (Auto) 31.3 Monocytes (%) (Auto) 11.6 Eosinophils (%) (Auto) 3.4 Basophils (%) (Auto) 1.1 H Neutrophils # (Auto) 2.9 Lymphocytes # (Auto) 1.7 Monocytes # (Auto) 0.6 Eosinophils # (Auto) 0.2 Basophils # (Auto) 0.1 CBC Comment Sodium Level 142 Potassium Level 3.8 Chloride Level 105 Carbon Dioxide Level 28.8 Anion Gap 8 Blood Urea Nitrogen 12 Creatinine 0.86 Estimated GFR/1.73 m2 63 BUN/Creatinine Ratio 14.0 Glucose Level 108 H Calcium Level 9.5 Troponin I High Sensitivity 7 9 Pro-B-Type Natriuretic Peptide 267 Albumin 4.0 Chemistry Comments Troponin I High Sens Percent Delta 28 Troponin I Hi Sens Absolute Change 2 EKG/XRAY/CT/US/VASC/MRI EKG : Additional Comment EKG independently interpreted by myself time 6:45 a.m. indication rapid heart rate atrial fibrillation with RVR rate [address] depressions inferior ST depressions no ST-elevation Repeat EKG time 802 indication rapid heart rate normal sinus rhythm rate 65 normal axis normal intervals no ST or T-wave abnormalities Medical Decision Making Additional info obtained from: old records Additional Information ACS, PE, Aortic dissection other causes of palpitations Departure Disposition: 01 HOME / SELF CARE / HOMELESS Admitted to Inpatient Unit: to hospitalist Impression: Primary Impression: Atrial fibrillation with rapid ventricular response Additional Impression Text Patient presents with rapid HR found to be in PAF with RVR. Spontaneously reve rted to NSR. Asymptomatic negative tropes. Discharge Instructions: Heart Disease Medication Safety Additional Instructions: If you have any reoccurence of your symptoms or chest pain please return to the ED for further management. Otherwise call your PCP for discussion of your medications and for ER followup. Referrals: NO PRIMARY CARE PROVIDER (PCP) Signature Scribe Signature: brigitte Attestation: SRINI Hensley MD Nov 30, 2024 07:11
--- NOTE | 2024-11-30 07:47 | RADIOLOGY REPORT ---
CHEST RADIOGRAPH Indication: CP Technique: Single frontal view of the chest was obtained COMPARISON: DI CHEST,TWO VIEWS on DOS: 08/18/24, CHEST,SINGLE VIEW on DOS: 07/23/22, CHEST,SINGLE VIEW on DOS: 08/21/21, CHEST,SINGLE VIEW on DOS: 07/04/20, CHEST,SINGLE VIEW on DOS: 06/09/20 FINDINGS: Lines and Tubes: None Lungs: Clear Pleura: No effusion. No pneumothorax. Cardiomediastinal contours: Unremarkable Bones: Unremarkable IMPRESSION: No acute disease.
[2024-11-30] MEDS: diltiazem 5mg/ml 5ml inj. IV ONE (08:02)
--- NOTE | 2024-11-30 08:04 | ELECTROCARDIOGRAPH REPORT ---
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
[2024-11-30 08:10] LABS: MEAN PLATELET VOLUME 7.9 FL (7.4-10.4); RED CELL DISTRIBUTION WIDTH 14.5 % (11.5-14.5)
[2024-11-30 08:47] LABS: CREATININE 0.86 MG/DL (0.40-0.90); PRO BRAIN NATRIURETIC PEPTIDE 267 PG/ML (0-450); TOTAL CARBON DIOXIDE 28.8 MMOL/L (24-32); eCRCL 41 ML/MIN; eGFR 63 ML/MIN
[2024-11-30 10:04] VITALS: BP 140/68; PULSE 58; RESP 11; TEMP 97.5; O2SAT 94
== END 2024-11-30 10:06 | disposition home or self-care (01) ==
LOC: ER 06:40
DX: I48.20 Chronic atrial fibrillation, unspecified (principal); R06.02 Shortness of breath; E03.9 Hypothyroidism, unspecified; I10 Essential (primary) hypertension; F32.A Depression, unspecified; F41.9 Anxiety disorder, unspecified; K21.9 Gastro-esophageal reflux disease without esophagitis; Z88.5 Allergy status to narcotic agent; Z90.49 Acquired absence of other specified parts of digestive tract; Z90.710 Acquired absence of both cervix and uterus
CPT/HCPCS: 36415; 71045; 80048; 83880; 84484; 85025; 93005; 99285

== ENCOUNTER 2024-12-18 14:29 | Outpatient (CLI) | payer MEDICARE, MEDICAID ==
--- NOTE | 2024-12-18 16:02 | RADIOLOGY REPORT ---
CLINICAL HISTORY: ABDOMINAL PAIN TECHNIQUE: CT of the abdomen and pelvis was performed without IV contrast. This exam was performed according to our departmental dose optimization program. Up-to-date CT equipment and radiation dose reduction techniques are utilized as appropriate. CTDI 14.3 DLP 716 COMPARISON: DI ACUTE ABDOMEN on DOS: 01/17/23, CT ABDOMEN PELVIS on DOS: 06/29/20, ABDOMEN,SINGLE VIEW(KUB) on DOS: 06/28/20 FINDINGS: Abdomen/Pelvis: The spleen, pancreas, adrenal glands, kidneys, liver, and bladder are grossly unremarkable. The gallbladder and uterus are absent. The abdominal aorta is normal in caliber with mild atherosclerotic calcifications. There is no free intraperitoneal air or fluid. There is no enlarged abdominal pelvic lymph node. There is no bowel wall thickening or dilatation. The appendix is normal. There is a moderate to large amount of stool in the colon. There is suture material at the rectum, likely related to prior resection. There is mild sigmoid colon diverticulosis. Other: The imaged lower thorax demonstrates a few shows a bilateral lower lung atelectasis and/or scar. No acute osseous abnormality is evident. Impression: No acute noncontrast CT abnormality in the abdomen /pelvis. Constipation. Mild sigmoid colon diverticulosis Hysterectomy. Cholecystectomy.
== END 2024-12-18 23:59 | disposition home or self-care (01) ==
LOC: RAD 14:29
PROVIDERS: ATTEND Nurse Practitioner
DX: K57.30 Diverticulosis of large intestine without perforation or abscess without bleeding (principal); R10.9 Unspecified abdominal pain; K59.00 Constipation, unspecified; Z90.710 Acquired absence of both cervix and uterus; Z90.49 Acquired absence of other specified parts of digestive tract
CPT/HCPCS: 74176

== ENCOUNTER 2024-12-26 17:21 | Emergency (ER) | payer MEDICARE, MEDICAID ==
[~2024-12-26] VITALS: Ht 157.5 cm; Wt 67.2 kg
[2024-12-26 17:27] VITALS: BP 165/72; PULSE 78; RESP 18; O2SAT 98
--- NOTE | 2024-12-26 21:16 | Physician Documentation ---
History of Present Illness ~ Chief Complaint: Leg Pain Stated Complaint: LEG PAIN Time Seen by MD: 17:58 Primary Medical Doctor: [facility] MICHELLE BROCK HPI 79-year-old female with longstanding history of right lower extremity neuropathy/neuropathic pain. Takes 100 mg of Neurontin b.i.d. only because she is hesitant to increase her dose. Takes no additional pain management. Also additionally takes Eliquis. She continues to have pain that is now well managed stool right lower extremity in the serum quite frustrated in discomfort. Denies acute injury, fever or change in characteristic of pain. Tetanus witin 5 years: No Medication Reconciliation Allergies: Coded Allergies: fluoxetine (Verified Allergy, Unknown, 12/26/24) codeine (Verified Adverse Reaction, Unknown, NAUSEA, 12/26/24) fentanyl (Verified Adverse Reaction, Unknown, 12/26/24) BP DROPS, "REAL SICK" Scheduled Apixaban (Eliquis), 5 MG PO BID Levothyroxine Sodium (Levothyroxine Sodium), 1 TAB PO DAILY, (Reported) Losartan Potassium (Losartan Potassium), 1 TAB PO HS, (Reported) Metoprolol Tartrate (Lopressor tablet), 12.5 MG PO BID Omeprazole (Omeprazole), 1 CAP PO DAILY, (Reported) Prednisolone Acetate/Pf (Prednisolone Acet 1% Eye Drop), 1 DROP EACHEYE BID, (Reported) Sertraline Hcl* (Zoloft*), 1 TAB PO DAILY, (Reported) Scheduled PRN Benzocaine/Benzethon Cl (Americaine), 1 APPLIC RC TID PRN for itching Clonazepam (Klonopin), 0.5 MG PO DAILY PRN for for anxiety/agitation, (Reported) Clonazepam* (Klonopin*), 1 MG PO DAILY PRN for for anxiety/agitation, (Reported) Ondansetron HCl (Ondansetron HCl), 1 TAB PO Q6H PRN for nausea, (Reported) Past Medical History Past Medical History: Hypertension, Constipation, GERD, Inflammatory Bowel Dz, UTI, Hypothyroidism, Herpes Zoster, Anxiety, Depression Past Surgical History: cholecystectomy, hysterectomy, other Other Past Surgical History: cataracts Patient History: Patient reports no known family medical history. Alcohol Use: None Drug Use: none Lives with: Alone Lives In: Home Occupation: retired Review of Systems All Other Systems at this time: Reviewed and Negative Constitutional: Denies: fever Musculoskeletal Right lower extremity pain Physical Exam Vital Signs: RN Vital Signs have been reviewed: Yes, Temperature: 97.6, Source: Temporal, Heart Rate: 78, Respiratory Rate: 18, BP: 165/72, Pulse Oximetry: 98, Weight: 67.200 Oxygen Flow Rate: 0 General Appearance: alert, WD/WN, mild distress Head: normal inspection EENT: PERRL/EOMI Respiratory: no respiratory distress Cardiovascular: regular rate, rhythm Gastrointestinal: non-tender Back: normal inspection Hips: normal inspection Legs: soft tissue tenderness; No: bone tenderness, joint effusion Legs Mild dependent swelling Knees: normal inspection Ligaments: normal Ankles: swelling Achilles Tendon: normal Skin: normal color Lymphatic: normal inspection Neurologic: oriented x4 Psychiatric: normal mood/affect Progress Results/Orders Results/Orders Orders - GISELL AGUILAR PAC Vl Venous (12/26/24 19:25) Completed Orders - GISELL AGUILAR PAC Vl Venous (12/26/24 19:25) Vital Signs 12/26/24 12/26/24 17:27 22:09 Temp 97.6 97.6 Pulse 78 Resp 18 B/P (MAP) 165/72 Pulse Ox 98 O2 Flow Rate 0 Medical Decision Making Additional information obtaine: N/A Findings Examination history warrants vascular imaging of the right lower extremity to exclude new DVT. Vascular imaging reassuring. No clinical suspicion for infectious etiology. Discussed with the patient at length different approaches to managing and increasing her dose of Neurontin. We have have a shared decision-making to increase it to 200 b.i.d. she is very comfortable with this for a mild change. She understands the risks alternatives benefits of Neurontin use. She does have reliable primary care. General Diff Dx:Considerations: Include: Contusion, Hematoma, Neurovascular injury, Other (Vascular occlusion, neuropathic pain, complex regional pain syndrome) Knee Diff Dx:Considerations: Include: Arthritis, Other Ankle Diff Dx:Considerations: Include: Arthritis Foot Diff Dx:Considerations: Include: Arthritis Toe Diff Dx:Considerations: Include: Other (Noncontributory) Departure Disposition: HOME / SELF CARE / HOMELESS Impression: Primary Impression: Neuropathy Condition: Stable Discharge Instructions: Neuropathic Pain Additional Instructions: Please make follow up appointment with your primary care physician for consideration and repeated ultrasound. Please continue with your blood thinner. Please consider increasing your Neurontin to 200 mg 3 times a day for greater trial of your neuropathic pain. Thank you for visiting emergency department [facility]. Referrals: NO PRIMARY CARE PROVIDER (PCP) Education Educated: Patient Educated regarding: diagnosis, treatment, prognosis Signature Scribe Signature: . Attestation: . GISELL AGUILAR [facility] Dec 26, 2024 21:16
[2024-12-26 22:09] VITALS: TEMP 97.6
--- NOTE | 2024-12-26 22:37 | VASCULAR REPORT ---
Procedure: VASC VL VENOUS 12/26/2024 09:36 PM Indication: Right leg pain Comparison: None TECHNIQUE: Duplex Doppler evaluation of the deep venous systems of lower extremities including the common femoral, femoral and popliteal veins utilizing color Doppler and spectral/pulsed waveform analysis techniques. FINDINGS: RIGHT: Normal compressibility was demonstrated in the common femoral, femoral and popliteal veins. Normal phasic flow and augmentation was present. Color flow is seen in the posterior tibial vein. LEFT: Unremarkable normal appearance of the left femoral vein. IMPRESSION: 1. No evidence of right-sided DVT.
== END 2024-12-26 22:11 | disposition home or self-care (01) ==
LOC: ER 17:22
DX: G62.9 Polyneuropathy, unspecified (principal); I10 Essential (primary) hypertension; E03.9 Hypothyroidism, unspecified; K21.9 Gastro-esophageal reflux disease without esophagitis; F41.9 Anxiety disorder, unspecified; F32.A Depression, unspecified; Z90.710 Acquired absence of both cervix and uterus; Z90.49 Acquired absence of other specified parts of digestive tract; Z88.5 Allergy status to narcotic agent; Z87.440 Personal history of urinary (tract) infections; Z88.8 Allergy status to other drugs, medicaments and biological substances; Z79.899 Other long term (current) drug therapy; Z60.2 Problems related to living alone
CPT/HCPCS: 93971; 99284

== ENCOUNTER 2025-01-22 22:22 | Emergency (ER) | payer MEDICARE, MEDICAID ==
[~2025-01-22] VITALS: Ht 157.5 cm; Wt 68.9 kg
--- NOTE | 2025-01-22 23:14 | Physician Documentation ---
History of Present Illness ~ Chief Complaint: See Chief Complaint Stated Complaint: HARD TIME SWALLOWING Time Seen by MD: 23:02 OK to notify your PCP?: No Primary Medical Doctor: [facility] MICHELLE APARICIO Kailash 79-year-old female presents after taking her prescribed oral antibiotic at 9:00 p.m. this evening. She states she believes that the pill was stuck in her throat she is able to drink water and eat applesauce without any difficulty but states she feels that the pill is stuck she also has a history of esophagitis esophageal stricture which Dr. Benítez has done procedures on. Denies any shortness of breath or chest pain Day of Onset: Jan 22, 2025 Medication Reconciliation Allergies: Coded Allergies: fluoxetine (Verified Allergy, Unknown, 01/22/25) codeine (Verified Adverse Reaction, Unknown, NAUSEA, 01/22/25) fentanyl (Verified Adverse Reaction, Unknown, 01/22/25) BP DROPS, "REAL SICK" Scheduled Apixaban (Eliquis), 5 MG PO BID Levothyroxine Sodium (Levothyroxine Sodium), 1 TAB PO DAILY, (Reported) Losartan Potassium (Losartan Potassium), 1 TAB PO HS, (Reported) Metoprolol Tartrate (Lopressor tablet), 12.5 MG PO BID Omeprazole (Omeprazole), 1 CAP PO DAILY, (Reported) Prednisolone Acetate/Pf (Prednisolone Acet 1% Eye Drop), 1 DROP EACHEYE BID, (Reported) Sertraline Hcl* (Zoloft*), 1 TAB PO DAILY, (Reported) Scheduled PRN Benzocaine/Benzethon Cl (Americaine), 1 APPLIC RC TID PRN for itching Clonazepam (Klonopin), 0.5 MG PO DAILY PRN for for anxiety/agitation, (Reported) Clonazepam* (Klonopin*), 1 MG PO DAILY PRN for for anxiety/agitation, (Reported) Ondansetron HCl (Ondansetron HCl), 1 TAB PO Q6H PRN for nausea, (Reported) Past Medical History Past Medical History: Hypertension, Constipation, GERD, Inflammatory Bowel Dz, UTI, Hypothyroidism, Herpes Zoster, Anxiety, Depression Past Surgical History: cholecystectomy, hysterectomy, other Other Past Surgical History: cataracts Patient History: Patient reports no known family medical history. Alcohol Use: None Drug Use: none Lives with: Alone Lives In: Home Occupation: retired Review of Systems All Other Systems at this time: Reviewed and Negative ROS As stated above in the HPI, otherwise all systems are reviewed and negative. Physical Exam Vital Signs: Temperature: 97.8, Source: Oral, Heart Rate: 71, Respiratory Rate: 12, BP: 176/74, Pulse Oximetry: 97, Weight: 68.900 Physical Exam General: Alert, no apparent distress. HEENT: PERRL, EOMI, no injection, moist mucous membranes. Neck: Full range of motion. Respiratory: Lungs clear, no respiratory distress. Chest: No accessory muscle use. Neurologic: Oriented x4. Psychiatric: Normal mood and affect. Progress Results/Orders Results/Orders Orders - SUGAR RIVAS BLACK TOPPER Neck For Soft Tissues (01/22/25 23:21) Completed Orders - SUGAR RIVAS [facility]PER Neck For Soft Tissues (01/22/25 23:21) Vital Signs 01/22/25 22:30 Temp 97.8 Pulse 71 Resp 12 B/P (MAP) 176/74 Pulse Ox 97 Medical Decision Making Additional information obtaine: old records Findings With a good deal of time with the patient explained that the pill that she took 2 hours ago has long resolved and passed down her esophagus and that she likely caused a minor abrasion in her esophagus. This is also likely secondary to previous diagnosis of NS esophageal stricture. She did not appear reassured with this information I told her I would get a soft tissue x-ray which will likely not show anything but that appeared to satisfy the patient. I could not appreciate any signs of foreign body per my interpretation of the patient's soft tissue x-ray Ear Diff. Dx: Considerations: Unlikely: Abrasion, Cerumen impaction, Foreign body, Otitis externa, Barotrauma, Otitis media, Perforation, Referred pain-dental, Referred pain-pharyngitis, Referred pain-sinusitis, Referred pain- TMJ syn., Tympanic Membrane Injury, Other Eye Diff. Dx: Considerations: Unlikely: Chalazoin, Conjuctivits-allergic, Conjuctivitis-bacterial, Conjuctivits-chlamydial, Conjuctivitis-viral, Corneal abrasion, Corneal laceration, Corneal ulceration, Foreign body-conjuctiva, Foreign body-corneal, Foreign body-intraocular, Foreign body-lid, Glaucoma, Globe rupture, Hordeolum, Iritis, Orbital cellulitis, Periobital cellulitis, Retinal artery occulsion, Retinal vein occlusion, Rust ring, Subconjunctival hem, Ultraviolet keratitis, Uveitis, Vitreous hemorrhage, Other Nose Diff. Dx: Considerations: Unlikely: Abrasion, Anterior nasal bleed, Avulsion, Contusion, Coagulopathy, Fracture-nasal bone, Fracture-septum, Hypertension, Laceration, Other, Posterior nasal bleed, Retained foreign body, Septal hematoma Tooth Diff. Dx: Considerations: Unlikely: Alveolar fracture, Aveolar osteitis, ANUG, Facial cellulitis, Periapical abscess, Periodontal abscess, Post- extraction bleeding, Pulpitis, Trigeminal neuralgia, Tooth-avulsion, Tooth- eruption, Tooth-fracture, Tooth-subluxation, Other Throat Diff Dx: Considerations: Include: AIDS, Epiglottitis, Esophageal candidiasis, Hand foot mouth disease, Herpangina, Herpetic stomatitis, Herpes simplex, Infection mononucleosis, Immunodeficiency, Jose's angina, Peritonsillar abscess, Peritonsillar cellulitis, Pharyngitis-diphtheria, Pharyng itis-strepococcal, Pharyngitis-viral, Thrush, URI, Other Departure Disposition: HOME / SELF CARE / HOMELESS Impression: Primary Impression: Throat discomfort Discharge Instructions: Esophageal Stricture Referrals: NO PRIMARY CARE PROVIDER (PCP) Signature Scribe Signature: i Attestation: Scribed for Sugar Rivas Operations Lead by Sugar Rivas - KALI . 01/22/25 23:18 SUGAR RIVAS [facility] TOPPER Jan 22, 2025 23:14
[2025-01-22 23:36] VITALS: BP 126/82; PULSE 80; RESP 18; TEMP 98.1; O2SAT 99
--- NOTE | 2025-01-23 00:34 | RADIOLOGY REPORT ---
Procedure: DI NECK FOR SOFT TISSUES Exam Date: 01/22/2025 11:16 PM History: swallow pill, now stuck Comparison Study: None Technique: Soft Tissue Neck: AP and lateral views. Findings: No radiopaque foreign body. Normal thickness of prevertebral soft tissues. No acute osseous abnormality. Unremarkable imaged upper chest. Impression: 1. No radiopaque foreign body in the neck soft tissues.
== END 2025-01-22 23:43 | disposition home or self-care (01) ==
LOC: ER 22:24
DX: R09.89 Other specified symptoms and signs involving the circulatory and respiratory systems (principal); E03.9 Hypothyroidism, unspecified; I10 Essential (primary) hypertension; F41.9 Anxiety disorder, unspecified; F32.A Depression, unspecified; K21.9 Gastro-esophageal reflux disease without esophagitis; Z90.710 Acquired absence of both cervix and uterus; Z90.49 Acquired absence of other specified parts of digestive tract; Z88.5 Allergy status to narcotic agent; Z87.440 Personal history of urinary (tract) infections; Z88.8 Allergy status to other drugs, medicaments and biological substances; Z79.899 Other long term (current) drug therapy; Z60.2 Problems related to living alone
CPT/HCPCS: 70360; 99283